=== PATIENT | male | born 1940 | race Caucasian/White ===

== ENCOUNTER 2016-12-28 08:34 | Inpatient (IN) | payer OTHER ==
[2016-12-28 09:07] LABS: BASO% 0.3 % (0.0-0.8); EOS# 0.75 X1000 (0.0-0.7); EOS% 10.3 % (0.0-10.0); HEMATOCRIT 27.1 % (42.0-52.0); HEMOGLOBIN 8.5 g/dL (14.0-18.0); LYMPH# 4.16 X1000 (1.2-3.4); LYMPH% 57.1 % (20.5-51.1); MANUAL DIFF NEEDED? YES; MCH 29.7 PG (27-31); MCHC 31.4 g/dL (33-37); MCV 94.8 FL (81-99); MONO# 0.47 X1000 (0.11-0.59); MONO% 6.5 % (1.7-9.3); MPV 10.2 FL (7.4-10.4); NEUT% 25.8 % (42.2-75.2); PLT 114 X1000 (130-400); RBC 2.86 XMIL (4.7-6.1)
[2016-12-28 09:23] LABS: ALBUMIN 4.1 g/dL (3.5-5.0); TOTAL BILIRUBIN 0.15 mg/dL (0.20-1.00); TOTAL PROTEIN 6.7 g/dL (6.3-8.3)
[2016-12-28 09:32] LABS: INR 0.98; PROTIME 10.4 Seconds (9.2-11.7)
--- NOTE | 2016-12-28 09:48 | PROVIDER DOCUMENTATION ---
HPI-Abdominal Pain/GI Problem - General Source: patient - History of Present Illness-ABD Nature of Presenting Problems: Pt is 76 y/o M presents to the ED with abdominal pain. Pt states the pain started 5 days ago. Pt states 4 days ago going to the bathroom to have a BM and when he wiped he had blood and blood in the toilet. Pt states the bleeding stayed present with BM for 3 days. Pt states no BM since yesterday. Pt denies N/ V/D. Pt states dizziness and denies syncopal episodes recently. Abdominal Pain Onset Location: reports: periumbilical Pain Radiation: reports: no radiation Quality of Pain: reports: aching Severity in ED: reports: mild Onset/Duration: reports: 3 days ago (rectal bleeding with BM), 5 days ago ( abdominal pain) Timing: reports: still present, intermittent Activities at Onset: reports: light activity Exposure to sick contacts?: No Modifying Factors: improves with: nothing Associated Symptoms: reports: dizziness, other (rectal bleeding with BM). denies: anxiety, arm pain, back/neck pain, chest pain, constipation, cough, diaphoresis, diarrhea, EENT symptoms, fatigue, fever/chills, genitourinary problems, headaches, heartburn, joint pain, loss of appetite, malaise, muscle aches, sinus congestion/drainage, nausea, rash, seizure, shortness of breath, sensory/motor loss, pain with inspiration, swelling/mass in abdomen, syncope, vomiting, weakness, trouble walking Last BM: 24 hours ago Dark Stools Present?: reports: none noticed Rectal Bleeding: reports: blood streaks on stool, other (blood on paper) Rectal Pain: reports: none Emesis Description: reports: none Bruising or Bleeding Gums?: No Similar Symptoms Previously?: Yes Recently seen or treated by another doctor?: No - General Chief Complaint: GI Bleed Stated Complaint: RECTAL BLEEDING,SOB Time Seen by Provider: 12/28/16 08:59 Allergies/Adverse Reactions: Patient Allergies Allergy/AdvReac Type Severity Reaction Status Date / Time No Known Allergies Allergy Verified 08/03/15 09:58 Home Medications: Home Medication List Medication Instructions Recorded Confirmed Last Taken Type Trazodone [Desyrel] 50 mg PO QHS 08/21/14 12/28/16 12/13/15 21:00 History Buspirone [Buspar] 15 mg PO BID #1 02/03/15 12/28/16 12/13/15 21:00 Rx Duloxetine [Cymbalta] 60 mg PO DAILY #1 02/03/15 12/28/16 12/13/15 07:00 Rx Levothyroxine [Synthroid] 50 microgm PO DAILY #1 02/03/15 12/28/16 12/13/15 07: 00 Rx Mirtazapine [Remeron] 15 mg PO QHS #1 02/03/15 12/28/16 12/13/15 21:00 Rx Ropinirole [Requip] 1 mg PO QHS #1 02/03/15 12/28/16 12/13/15 21:00 Rx Simvastatin [Zocor] 40 mg PO DAILY 12/14/15 12/28/16 12/13/15 07:00 History Tamsulosin [Flomax] 0.4 mg PO DAILY #0 capsule 12/19/15 12/28/16 Unknown Rx Gemfibrozil [Lopid] 600 mg PO BID 12/28/16 12/28/16 Unknown History Lisinopril/Hydrochlorothiazide 0.5 each PO DAILY 12/28/16 12/28/16 Unknown History [Lisinopril-Hctz 10-12.5 mg Tab] Review of Systems - Adult - REVIEW OF SYSTEMS - ADULT Constitutional: denies: chills, fever Eyes: denies: blurred vision, double vision Ears, Nose, Mouth & Throat: denies: ear pain, nose pain, throat pain Cardiovascular: denies: chest pain, heart murmur, irregular heart rate Respiratory: denies: cough, shortness of breath, wheezing Gastrointestinal: reports: abdominal pain (periumbilical), rectal bleeding. denies: diarrhea, nausea, vomiting Genitourinary: denies: dysuria, hematuria Musculoskeletal: denies: bone pain, joint pain, neck pain Integumentary: denies: hives, itching Neurological: denies: dizziness/vertigo, headache/migraines Psychiatric: reports: no symptoms reported Endocrine: reports: no symptoms reported Hematologic/Lymphatic: reports: no symptoms reported Allergic/Immunologic: reports: no symptoms reported All Other Systems: Reviewed and Negative Past History - Adult - PAST MEDICAL HISTORY-ADULT Review of Records: reports: Nursing Assessment Review, Medications Reviewed, Social history reviewed & non-contributory. Major Childhood Illnesses: reports: denies history Cardiovascular: reports: CAD, HTN, [place] Respiratory: reports: asthma, COPD, sleep apnea Gastrointestinal: reports: denies history Obstetrical/Gynecological: reports: denies history Genitourinary: reports: denies history Musculoskeletal: reports: denies history Neurological: reports: denies history Endocrine/Immune: reports: thyroid disorder Other Conditions: reports: denies history - PRIOR SURGERIES/PROCEDURES Surgical/Procedure History: reports: CABG, other (colon surgery ) - PRIOR HOSPITALIZATIONS Prior Hospitalizations: reports: for similar symptoms - IMMUNIZATION STATUS Childhood Immunizations: See Nurse Assessment Flu Vaccine: See Nurse Assessment - FAMILY HISTORY Family History: reviewed, not pertinent - SOCIAL HISTORY Smoking: cigarettes, less than 1 pack/day Provider spent 3-5 mins advising pt. on dangers of tobacco.: Discussed manners to quit use, and f/u contacts for add'l counseling. Substance Use: denies Living Situation: family Physical Exam-General - PHYSICAL EXAM-ADULT Initial Vital Signs Reviewed: Yes - CONSTITUTIONAL General Appearance: appears well, alert, no apparent distress - EYES Eyes: PERRL/EOMI, pink conjunctivae, fundi clear, no AV nicking - HEAD, EARS, NOSE, MOUTH & THROAT HENMT: normocephalic/atraumatic, moist mucous membranes, normal ENT inspection, TMs normal, pharynx normal - NECK Neck: non-tender, full range of motion, supple, normal inspection - RESPIRATORY Respiratory: chest non-tender, lungs clear, no pleuratic chest pain, no respiratory distress, no accessory muscle use, wheezing (expiratory) - CARDIOVASCULAR Cardiovascular: normal peripheral pulses, regular rate, rhythm, no edema, no gallop, no JVD, no murmur, other (mid sternal healed scar) - GASTROINTESTINAL (ABDOMEN) Abdominal Exam: normal bowel sounds, non tender, soft, no organomegaly, no pulsatile mass, other (well healed abdominal scar) - GENITOURINARY Rectal Exam: normal exam, normal rectal tone, other (no blood in under garments ; no blood present on anus; rectal vault empty) - LYMPHATIC Lymphatic: no adenopathy - MUSCULOSKELETAL Back Exam: normal inspection, no CVA tenderness, no vertebral tenderness Extremity: normal range of motion, non-tender, normal inspection, no pedal edema , no calf tenderness Peripheral Pulses: dorsalis-pedis (R): 2+, dorsalis-pedis (L): 2+ - SKIN Integumentary: normal color, normal turgor, warm/dry - NEUROLOGIC Neurologic: insurance investigator II-XII nml as tested, grossly normal, no motor/sensory deficits - PSYCHIATRIC Psych/Mental Status: normal mood/affect, normal thought content, normal thought process, oriented x 3 Progress - PLAN OF CARE/RESULTS Progress/Plan/Lab Results: Laboratory Tests 12/28/16 12/28/16 12/28/16 08:55 08:55 08:55 WBC 7.28 RBC 2.86 L Hgb 8.5 L Hct 27.1 L MCV 94.8 MCH 29.7 MCHC 31.4 L RDW Std Deviation 12.2 Plt Count 114 L MPV 10.2 Immature Gran % (Auto) 0.0 Neut % (Auto) 25.8 L Lymph % (Auto) 57.1 H Morrison % (Auto) 6.5 Eos % (Auto) 10.3 H Baso % (Auto) 0.3 Immature Gran # (Auto) 0.00 Neut # (Auto) 1.88 Lymph # (Auto) 4.16 H Morrison # (Auto) 0.47 Eos # (Auto) 0.75 H Baso # (Auto) 0.02 PT 10.4 INR 0.98 Sodium 139 Potassium 5.0 Chloride 95 L Carbon Dioxide 33 Anion Gap 11 BUN 45 H Creatinine 2.1 H Estimated GFR/1.73 m2 31 BUN/Creatinine Ratio 21 Glucose 83 Calculated Osmolality 288 Calcium 9.0 Total Bilirubin 0.15 L AST 13 ALT 6 L Alkaline Phosphatase 67 Total Protein 6.7 Albumin 4.1 Globulin 2.6 Albumin/Globulin Ratio 1.6 Orders Category Date Time Status CBC WITH DIFF [HEME] Stat Lab 12/28/16 08:55 Results CMP [COMPREHENSIVE METABOLIC PANEL] [CHEM] Stat Lab 12/28/16 08:55 Completed PROTIME WITH INR [COAG] Stat Lab 12/28/16 08:55 Completed Vital Signs - 24 hr 12/28/16 12/28/16 08:42 09:14 Temperature 98.2 F Pulse Rate 63 71 Respiratory 20 20 Rate Blood Pressure 91/72 82/51 O2 Sat by Pulse 100 92 L Oximetry - EKG 1 Time of EKG reading by physician:: 10:10 EKG Read and Signed by:: Gabriel Flor Jr EKG Interpretation (*Must complete 3 of following elements*): Abnormal Rate: 74 Rhythm: sinus rhythm with premature atrial complexes with aberrant conduction Comments: T wave abnormality, consider lateral ischemia - CONSULTS/PCP/HOSPITALIST Notification #1 *Consult/PCP/Hospitalist*: Dr. Domínguez Time Discussed: 11:50 (Dr. Domínguez accepted admit and states give protonix bolus in ED ) Reason/Comments: Dr. Flor consults with Dr. Domínguez about admit of Pt Consult Disposition: Admit #2 Consult: Dr. Jameson Time Discussed: 12:06 (Dr. Jameson states will see Pt upstairs ) Reason/Comments: Dr. Flor consults with Dr. Jameson about Pt. Departure - Departure Time of Disposition Order: 11:51 Certified Medical Emergency: Emergent - Departure DIAGNOSIS: Lower GI bleed, Anemia due to blood loss, COPD exacerbation, Tobacco abuse Disposition: ADMITTED INPATIENT 09 Condition: Stable Additional Instructions: ED Follow Up Instructions: You have been treated by a care provider in the Emergency Department. These instructions are being provided to you so you can have an understanding of how to care for yourself upon discharge. Upon discharge from the Emergency Department, you are responsible for making arrangements for follow-up care by a physician of your choice. Take all prescribed medications as directed. Return to the Emergency Department immediately for any new or worsening symptoms. You may call the Physician Referral phone number at [phone] to obtain a list of Physicians who are taking new patients. Referrals: Michael Camacho MD [Primary Care Provider] - Attestation - Scribe Verification/Attestation Scribe:: Adri Villanueva Acting as Scribe for:: Gabriel Flor Jr Scribe documention review:: This chart was documented by a scribe and accurately reflects the service the provider performed and the decisions made by the provider. Physician Attestation
[2016-12-28] MEDS ORDERED: NS 1,000 ML IV ONE (10:00)
[2016-12-28] MEDS ORDERED: NS 1,000 ML ONE (10:01)
[2016-12-28 10:16] LABS: BANDS 2 % (0-1); EOS 12 % (1-10); LYMPHS 52 % (21-51); MONO 11 % (1-9)
[2016-12-28 10:17] LABS: HYPOCHROM 1+
[2016-12-28] MEDS ORDERED: DUONEB (A & A) INH ONE (10:27)
[2016-12-28] MEDS ORDERED: PROTONIX 80 MG in NS 80 ML IV ONE (11:50)
[2016-12-28] MEDS ORDERED: NS 1,000 ML IV SCH (12:00)
[2016-12-28 17:17] LABS: MAGNESIUM 2.2 mg/dL (1.5-2.7)
[2016-12-28] MEDS ORDERED: PROTONIX IV SCH (19:00)
[2016-12-28] MEDS ORDERED: FLUZONE QUAD 2016-2017 SYRINGE IM ONE (19:00)
[2016-12-28] MEDS ORDERED: PNEUMOVAX 23 IM ONE (19:04)
[2016-12-28] MEDS ORDERED: NS 500 ML IV ONE (19:09)
[2016-12-28 19:59] LABS: HEMATOCRIT 26.9 % (42.0-52.0); HEMOGLOBIN 8.5 g/dL (14.0-18.0)
--- NOTE | 2016-12-28 20:03 | HISTORY AND PHYSICAL ---
HISTORY OF PRESENT ILLNESS: Mr. Phillips who is a 76-year-old white gentleman came to the emergency room because of rectal bleeding for the last 2 days. He passed black stool as well as bright red blood through the rectum. Mr. Phillips has a history of ischemic bowel in the past and had a subtotal colectomy done. He also had coronary artery bypass surgery performed about 16 years ago and had 1 back surgery performed. He had left carotid endarterectomy. He has a known case of COPD, hypothyroidism, BPH, mild hypertension diabetes 7. MEDICATIONS: Levothyroxine 50 mcg, ropinirole 1 mg at bedtime, Remeron 15 mg at bedtime, lisinopril/HCT daily, gemfibrozil 600 mg b.i.d., Flomax 0.4 mg daily, trazodone 50 mg at bedtime, Cymbalta 60 mg daily, risperidone 15 mg twice a day. SOCIAL HISTORY: He is a smoker. He does not drink. He is a patient of Dr. Camacho. ALLERGIES: He is not allergic to any medication. REVIEW OF SYSTEMS: Other than rectal bleeding and mild intermittent abdominal pain, is noncontributory. PHYSICAL EXAMINATION: GENERAL: Patient is alert. VITAL SIGNS: Temperature 99.1 degrees Fahrenheit, pulse 68 per minute, respiratory rate 18 per minute, blood pressure 162/64. HEENT: Head normocephalic. PERRLA. Fundus examination not done. ENT examination unremarkable. NECK: Supple. JVP normal. There is no evidence of lymphadenopathy, thyroid enlargement. EXTREMITIES: No pedal edema, calf tenderness, edema, cyanosis or clubbing. Pedal pulses well felt. BREAST EXAMINATION: Normal. CHEST: Reveals a midline scar from bypass surgery. LUNGS: Clear on auscultation. PMI in the normal position. HEART: Sounds normal. No murmur, gallop or rub noted. ABDOMEN: Nondistended. Revealed a midline scar from colon surgery. No guarding, rigidity or free fluid masses. There was some tenderness in the left lower quadrant. RECTAL EXAMINATION: Deferred initially. It was done and there was no blood in the rectal vault at that time, however, the stool was positive for occult blood. CENTRAL NERVOUS SYSTEM: Cranial nerves normal. Motor and sensory system examination unremarkable. Deep tendon reflexes normal. Plantars downgoing. Skull and spine examination normal for age. No cerebellar signs or signs of meningeal irritation. LOCOMOTOR EXAMINATION: Unremarkable. SKIN EXAMINATION: Unremarkable. CLINICAL IMPRESSION: Abdominal pain, rectal bleeding, history of ischemic bowel and partial colectomy performed by Dr. Summers in the past. PLAN: Get EGD and colonoscopy done by Dr. Jameson tomorrow. In the meantime watch his hematocrit and hemoglobin. We will try to transfuse if hemoglobin and hematocrit is significantly low.
[2016-12-28] MEDS: DESYREL PO SCH (21:47)
[2016-12-28] MEDS: REQUIP PO SCH (21:47)
[2016-12-28] MEDS: REMERON PO SCH (21:48)
[2016-12-28] MEDS: ZOCOR PO SCH (21:48)
[2016-12-28] MEDS: LOPID PO SCH (21:48)
[2016-12-28] MEDS: BUSPAR PO SCH (21:48)
[2016-12-28] MEDS: SODIUM CHLORIDE 0.9% INJ SCH (21:49)
[2016-12-29 03:04] LABS: HEMATOCRIT 25.7 % (42.0-52.0); HEMOGLOBIN 8.1 g/dL (14.0-18.0)
--- NOTE | 2016-12-29 05:45 | EKG Report ---
Test Performed on : 12/28/2016 4:40:45 PM Test Reason : repeat Blood Pressure : / mmHG Vent. Rate : 070 BPM Atrial Rate : 070 BPM P-R Int : 152 ms QRS Dur : 086 ms QT Int : 376 ms P-R-T Axes : 079 041 099 degrees QTc Int : 406 ms Sinus rhythm. with premature atrial complexes. with aberrant conduction. T wave abnormality, consider lateral ischemia Abnormal ECG When compared with ECG of 28-DEC-2016 16:40, (Unconfirmed) aberrant conduction. is now present Confirmed by Anshu Gusman MD ([id number]) on 12/30/2016 8:46:40 PM
--- NOTE | 2016-12-29 06:12 | EKG Report ---
Test Performed on : 12/28/2016 10:10:37 AM Test Reason : No order in [facility] Blood Pressure : / mmHG Vent. Rate : 074 BPM Atrial Rate : 074 BPM P-R Int : 156 ms QRS Dur : 084 ms QT Int : 368 ms P-R-T Axes : 073 055 088 degrees QTc Int : 408 ms Sinus rhythm. with premature atrial complexes. with aberrant conduction. T wave abnormality, consider lateral ischemia Abnormal ECG When compared with ECG of 14-DEC-2015 14:10, aberrant conduction. is now present T wave inversion now evident in Lateral leads Unconfirmed Result
[2016-12-29] MEDS: DUONEB (A & A) INH SCH ×3 (08:34→21:25)
[2016-12-29 08:53] LABS: HEMATOCRIT 26.1 % (42.0-52.0); HEMOGLOBIN 8.3 g/dL (14.0-18.0)
--- NOTE | 2016-12-29 09:56 | PROGRESS NOTE ---
DATE: 12/29/2016 SUBJECTIVE: Mr. Phillips is doing some better this morning; however, he still has wheezing. He had a lot of bleeding last night and he was transfused 1 unit. His hemoglobin is down to 8.1. He is going to have the colonoscopy this morning. -2
[2016-12-29] MEDS: ROCEPHIN 1 GM/NS 50 ML IV SCH (11:34)
[2016-12-29] MEDS: BUSPAR PO SCH ×2 (11:34→21:00)
[2016-12-29] MEDS: PRINZIDE 10/12.5MG PO SCH (11:35)
[2016-12-29] MEDS: FLOMAX PO SCH (11:35)
[2016-12-29] MEDS: CYMBALTA PO SCH (11:35)
[2016-12-29] MEDS: SYNTHROID PO SCH (11:36)
[2016-12-29] MEDS: LOPID PO SCH ×2 (11:36→21:00)
[2016-12-29] MEDS: PROTONIX IV SCH ×2 (11:37→23:06)
[2016-12-29] MEDS: SODIUM CHLORIDE 0.9% INJ SCH ×2 (11:37→23:06)
[2016-12-29] MEDS ORDERED: GOLYTELY PO ONE (14:00)
[2016-12-29 15:03] LABS: HEMATOCRIT 26.9 % (42.0-52.0); HEMOGLOBIN 8.4 g/dL (14.0-18.0)
--- NOTE | 2016-12-29 15:46 | CONSULTATION ---
DATE OF CONSULTATION: 12/29/2016 REQUESTING PHYSICIAN: Dr. Camacho. REASON FOR CONSULTATION: Rectal bleeding. HISTORY OF PRESENT ILLNESS: Mr. Phillips is a 76-year-old male who was admitted on 12/26/2016 for acute onset of rectal bleeding since last Monday. Currently the patient is passing bright red blood per the rectum. In the past he had a history of ischemic bowel and had a subtotal colectomy done. He has a history of coronary bypass surgery 16 years ago. He denies any vomiting blood or coffee-ground emesis. He does have a history of chronic acid reflux. His last colonoscopy had poor prep. During this admission the patient was noted to be anemic with a hemoglobin and hematocrit of 8.3 and 26.1. He has gotten 1 unit of blood last night. PAST MEDICAL HISTORY: COPD, hypothyroidism, BPH, hypertension, diabetes, aortic stenosis, coronary disease, ischemic bowel, gastroesophageal reflux disease, constipation. PAST SURGICAL HISTORY: Carotid endarterectomy, CABG, EGD, and colonoscopy. MEDICATIONS: At home include levothyroxine, ropinirole, Remeron, lisinopril/ hydrochlorothiazide, gemfibrozil, Flomax, trazodone, Cymbalta, risperidone. Patient denies any history of use of NSAIDs. SOCIAL HISTORY: He is a smoker. He denies any history of drinking. He denies use of illicit drugs. He has a very supportive family at bedside. ALLERGIES: No known drug allergies. REVIEW OF SYSTEMS: Denies any fevers, rigors, or chills, chest pain, shortness of breath at rest. Does have history of exertional shortness of breath attributed to COPD. Denies any vomiting blood or coffee emesis. He has had rectal bleeding going on for the last 7 days and causing anemia requiring blood transfusion. Denies any neurologic complaints. MEDICATIONS IN THE HOSPITAL: Protonix IV once daily, BuSpar, Cymbalta, trazodone, Flomax, gemfibrozil, lisinopril/hydrochlorothiazide, Remeron, ropinirole, levothyroxine , simvastatin, ceftriaxone, albuterol/ipratropium. He is currently NPO. PHYSICAL EXAMINATION: Vital SIGNS: Temperature 97.9, pulse rate of 80, respiratory rate 18, blood pressure 143/53, saturating 90% on nasal cannula. General Appearance: Moderately built, moderately nourished, lying in bed, in no acute distress. HEENT: Pale conjunctivae. No icterus. Pupils equal, react to light. Neck: Supple. Chest: Decreased. Cardiac: Regular rhythm. No murmur. Abdomen: Soft. Mild discomfort noted. No rebound. No guarding. Bowel sounds noted. Extremities: No cyanosis, clubbing. Neurologic: Alert, awake, oriented. LABS: Hemoglobin and hematocrit are 8.3 and 26.1, white count 7.2, platelet count of 114,000. Sodium 139, potassium 5, chloride 95, bicarb of 33, anion gap of 11, BUN of 45, creatinine of 2.1, glucose of 80, HB A1c 5.9, calcium is 9, phosphorus 3.1. Iron level of 73, magnesium 2.2, ferritin 224. Total bilirubin is 0.15, AST 13, ALT 6, alkaline phosphatase 67, total protein. 6.7, albumin of 4.1, amylase of 40, lipase of 29. 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 Last EGD and colonoscopy. Last EGD was done 12/17/2015 which showed esophageal ring in distal esophagus status post dilation, sliding hiatal hernia, and gastritis. The stool throughout the colon, most in the descending colon and sigmoid colon. Small polyps left colon. Internal hemorrhoids. Status post left hemicolectomy by Dr. Summers on 10/27/2014. He had left carotid endarterectomy by Dr. Wallace in 2014. IMPRESSIONS: 1. Rectal bleeding. 2. Atypical abdominal pain. 3. Anemia requiring blood transfusion. 4. History of chronic smoking. 5. Chronic obstructive pulmonary disease. 6. Peripheral arterial disease history. 7. History of ischemic colitis, required resection in 2013. 8. Constipation. 9. Reflux disease. RECOMMENDATIONS: 1. Will schedule the patient for EGD and colonoscopy tomorrow Dr. Jameson. We will start him on Protonix and increase it to twice daily. We will start him on a clear liquid diet today. We will type and cross, transfuse to keep hematocrit more than 25%. We will avoid any NSAIDs. The patient was instructed to quit smoking completely. 2. The patient has positive QuantiFERON test from before, 2014. In that regard , patient may benefit from investigation by infectious disease team. We will leave it to the discretion of the primary care team in that regard. 3. Further recommendations are pending hospital course. MTDKristopher
[2016-12-29] MEDS: ZOCOR PO SCH (21:00)
[2016-12-29] MEDS: REMERON PO SCH (21:00)
[2016-12-29] MEDS: REQUIP PO SCH (21:00)
[2016-12-29] MEDS: DESYREL PO SCH (21:00)
[2016-12-30] MEDS: DUONEB (A & A) INH SCH ×3 (08:29→19:37)
[2016-12-30] MEDS: ROCEPHIN 1 GM/NS 50 ML IV SCH (09:27)
[2016-12-30] MEDS ORDERED: NS 500 ML IV ONE (10:42)
--- NOTE | 2016-12-30 11:16 | PROGRESS NOTE ---
DATE: 12/30/2016 SUBJECTIVE: Mr. Phillips also had some bleeding. His hemoglobin and hematocrit is stable, however according to a family member he had large bleed. He is somewhat drowsy. He is getting the colonoscopy today. I am going to transfuse him 2 more units of packed RBCs. -7
[2016-12-30] MEDS ORDERED: DUONEB (A & A) INH ONE (11:31)
[2016-12-30] MEDS ORDERED: MYLICON DROPS (DOSE) MISC ONE (12:04)
[2016-12-30] MEDS ORDERED: DIPRIVAN 1% ONE (12:38)
--- NOTE | 2016-12-30 13:01 | OPERATIVE NOTE ---
PROCEDURE DATE: 12/30/2016 PROCEDURE: 1. Colonoscopy. 2. Esophagogastroduodenoscopy. PREOPERATIVE DIAGNOSES: 1. Gastrointestinal bleed. 2. Anemia. POSTOPERATIVE DIAGNOSES: 1. Normal upper gastrointestinal tract. 2. Diverticulosis. 3. Old blood in the colon, no active bleeding. DESCRIPTION OF PROCEDURE: After informed consent and adequate intravenous sedation by Anesthesia, the scope was introduced to the esophagus. No varices. Cardia, fundus, body, antrum, pylorus, duodenal bulb and second portion normal. No fresh or old blood seen. The scope was withdrawn. At this point, digital rectal exam was performed. Scope advanced all the way into the cecum. The right colon is clear. There were scattered diverticulosis throughout the colon. In the left colon, there was old blood, however, this was lavaged. Patient has no bleeding site identified and no active bleeding seen. The scope was withdrawn. Therefore, I think patient had a diverticular bleed. We will watch him and keep the hematocrit about 28.
[2016-12-30] MEDS ORDERED: LR 1,000 ML ONE (13:09)
[2016-12-30] MEDS ORDERED: XYLOCAINE-MPF 2% ONE (13:09)
[2016-12-30] MEDS ORDERED: ANESTHESIA PB SET 88 IN 5742 ONE (13:09)
[2016-12-30] MEDS ORDERED: EXTENSION SET 32 IN 4522 ONE (13:09)
[2016-12-30] MEDS: PROTONIX IV SCH ×2 (14:52→20:16)
[2016-12-30] MEDS: BUSPAR PO SCH ×2 (14:52→20:15)
[2016-12-30] MEDS: SYNTHROID PO SCH (14:56)
[2016-12-30] MEDS: PRINZIDE 10/12.5MG PO SCH (14:56)
[2016-12-30] MEDS: LOPID PO SCH ×2 (14:57→20:15)
[2016-12-30] MEDS: CYMBALTA PO SCH (14:57)
[2016-12-30] MEDS: FLOMAX PO SCH (14:57)
[2016-12-30] MEDS ORDERED: LASIX IV ONE (18:15)
[2016-12-30] MEDS ORDERED: LASIX ONE (18:17)
[2016-12-30] MEDS: ZOCOR PO SCH (20:14)
[2016-12-30] MEDS: REQUIP PO SCH (20:14)
[2016-12-30] MEDS: REMERON PO SCH (20:14)
[2016-12-30] MEDS: DESYREL PO SCH (20:15)
[2016-12-30] MEDS: SODIUM CHLORIDE 0.9% INJ SCH (20:15)
[2016-12-31] MEDS: PROTONIX IV SCH ×2 (09:32→23:21)
[2016-12-31] MEDS: ROCEPHIN 1 GM/NS 50 ML IV SCH (09:32)
[2016-12-31] MEDS: SODIUM CHLORIDE 0.9% INJ SCH ×2 (09:32→23:21)
[2016-12-31] MEDS: PRINZIDE 10/12.5MG PO SCH (09:33)
[2016-12-31] MEDS: SYNTHROID PO SCH (09:33)
[2016-12-31] MEDS: CYMBALTA PO SCH (09:34)
[2016-12-31] MEDS: BUSPAR PO SCH ×2 (09:35→23:21)
[2016-12-31] MEDS: LOPID PO SCH ×2 (09:35→23:21)
[2016-12-31] MEDS: FLOMAX PO SCH (09:35)
[2016-12-31] MEDS: DUONEB (A & A) INH SCH ×3 (09:51→19:44)
--- NOTE | 2016-12-31 13:22 | PROGRESS NOTE ---
DATE: 12/31/2016 SUBJECTIVE: Mr. Phillips is doing better. His hemoglobin is stable. We will do the CBC in the morning and, if it normal, then we will discharge him. He does not want to stay any longer. -2
--- NOTE | 2016-12-31 16:07 | PROGRESS NOTE ---
DATE: 12/31/2016 SUBJECTIVE: Patient is currently resting in bed. He denies any new complaints. Denies any blood in the stools. Vitals: Temperature 98.5 degrees, pulse rate 70, respiratory rate 16, blood pressure 134/43, saturating 98% on 4 L nasal cannula. General Appearance: Moderately well- nourished, in bed, in no acute distress. HEENT: Pale conjunctivae. No icterus. Neck: Supple. Abdomen: Soft, nontender, nondistended. No guarding. No rebound. Extremities: No cyanosis, clubbing, edema. Neurologic: He is alert, awake, oriented. LABS: His hemoglobin and hematocrit is 8.4, 26.9 from 12/29. IMPRESSION AND PLAN: 1. Diverticular bleeding which has resolved now. The patient will avoid corn, nuts, and seeds in diet. We will increase fiber 25-30 g 24 hours. The patient will be on Metamucil once daily. 2. Constipation. The patient need to be on Metamucil once at bedtime and MiraLAX in the morning. 3. Anemia. We will watch for now. We will type and cross, transfuse to keep hematocrit more than 25%. We will start on iron supplementation. 4. Further recommendation pending hospital course.
[2016-12-31] MEDS: ZOCOR PO SCH (23:21)
[2016-12-31] MEDS: DESYREL PO SCH (23:21)
[2016-12-31] MEDS: REQUIP PO SCH (23:21)
[2016-12-31] MEDS: REMERON PO SCH (23:21)
[2016-12-31] MEDS: CENTRUM SILVER PO SCH (23:22)
[2017-01-01 06:59] LABS: MANUAL DIFF NEEDED? NO
[2017-01-01 07:12] LABS: BASO% 0.4 % (0.0-0.8); EOS# 0.63 X1000 (0.0-0.7); EOS% 11.1 % (0.0-10.0); HEMATOCRIT 28.8 % (42.0-52.0); HEMOGLOBIN 9.1 g/dL (14.0-18.0); LYMPH% 52.9 % (20.5-51.1); MCH 28.2 PG (27-31); MCHC 31.6 g/dL (33-37); MCV 89.2 FL (81-99); MONO# 0.36 X1000 (0.11-0.59); MONO% 6.3 % (1.7-9.3); MPV 10.5 FL (7.4-10.4); NEUT% 29.3 % (42.2-75.2); PLT 99 X1000 (130-400); RBC 3.23 XMIL (4.7-6.1)
[2017-01-01 07:35] VITALS: BP 142/50
[2017-01-01] MEDS: DUONEB (A & A) INH SCH (08:00)
[2017-01-01] MEDS ORDERED: HEMOCYTE PO SCH (09:00)
[2017-01-01] MEDS: ROCEPHIN 1 GM/NS 50 ML IV SCH (09:35)
[2017-01-01] MEDS: SODIUM CHLORIDE 0.9% INJ SCH (09:36)
[2017-01-01] MEDS: PROTONIX IV SCH (09:36)
[2017-01-01] MEDS: FLOMAX PO SCH (09:36)
[2017-01-01] MEDS: CENTRUM SILVER PO SCH ×2 (09:36→09:40)
[2017-01-01] MEDS: PRINZIDE 10/12.5MG PO SCH (09:36)
[2017-01-01] MEDS: LOPID PO SCH (09:37)
[2017-01-01] MEDS: SYNTHROID PO SCH (09:38)
[2017-01-01] MEDS: BUSPAR PO SCH (09:38)
[2017-01-01] MEDS: CYMBALTA PO SCH (09:38)
--- NOTE | 2017-01-01 12:15 | PROGRESS NOTE ---
DATE: 01/01/2017 Mr. Phillips insists on going home. His CBC is stable. Hemoglobin is above 9 g. His lungs sound clear today. Overall condition is unchanged. He has no active bleeding. We will discharge him today. -4
--- NOTE | 2017-01-02 08:54 | DISCHARGE SUMMARY ---
ADMISSION DATE: 12/28/2016 DISCHARGE DATE: 01/01/2017 HISTORY: The patient who is a 76-year-old white gentleman was admitted with severe GI bleeding point around. Laboratory Data in the hospital, he had an EGD done by Dr. Jameson and colonoscopy done here with a normal gastrointestinal tract, diverticulosis and old blood in the colon. No active bleeding was noted. Laboratory data revealed when he came in it was 8.5, it dropped to 8.1. He continuously was bleeding. Hence, we decided to transfuse him. Final hemoglobin this morning is 9.1, hematocrit 28.8, white count is 5.67. INR was 0.98. Electrolytes were normal. BUN to 245 and creatinine 2.1. Troponin was negative. He was given IV fluids and IV transfusion. Dr. Thompson and Dr. Jameson were consulted. EGD and colonoscopy was unremarkable. The final diagnosis is possible diverticular bleeding. He will be given ferrous sulfate prescription of 324 mg daily. He may take That is all he is going to need and he is going to see Dr. Camacho in about a week. IMPRESSION: 1. COPD. 2. Active GI bleeding possibly from diverticulosis.
== END 2017-01-01 14:16 | disposition home or self-care (01) | DRG 378 ==
LOC: ED 08:34 → EDIPHOLD 12:36 → 3N 16:38
PROVIDERS: ADMIT Internal Medicine; ATTEND Internal Medicine
PROC: 30233N1 Transfusion of Nonautologous Red Blood Cells into Peripheral Vein, Percutaneous Approach (ICD-10-PCS; 2016-12-28)
PROC: 0DJ08ZZ Inspection of Upper Intestinal Tract, Via Natural or Artificial Opening Endoscopic (ICD-10-PCS; principal; 2016-12-30 12:00)
PROC: 0DJD8ZZ Inspection of Lower Intestinal Tract, Via Natural or Artificial Opening Endoscopic (ICD-10-PCS; 2016-12-30 12:00)
DX: K57.31 Diverticulosis of large intestine without perforation or abscess with bleeding (principal); J44.1 Chronic obstructive pulmonary disease with (acute) exacerbation; E11.51 Type 2 diabetes mellitus with diabetic peripheral angiopathy without gangrene; D50.0 Iron deficiency anemia secondary to blood loss (chronic); I10 Essential (primary) hypertension; F17.210 Nicotine dependence, cigarettes, uncomplicated; F32.9 Major depressive disorder, single episode, unspecified; Z90.49 Acquired absence of other specified parts of digestive tract; E03.9 Hypothyroidism, unspecified; I35.0 Nonrheumatic aortic (valve) stenosis; N40.0 Benign prostatic hyperplasia without lower urinary tract symptoms; I25.10 Atherosclerotic heart disease of native coronary artery without angina pectoris; J45.909 Unspecified asthma, uncomplicated; K21.9 Gastro-esophageal reflux disease without esophagitis; Z95.1 Presence of aortocoronary bypass graft; K59.00 Constipation, unspecified; M19.90 Unspecified osteoarthritis, unspecified site; G25.81 Restless legs syndrome; Z79.899 Other long term (current) drug therapy; I25.2 Old myocardial infarction
CPT/HCPCS: 36415; 80053; 82270; 82550; 83735; 84484; 85014; 85018; 85025; 85610; 86850; 86900; 86901; 86920; 93005; 94640; 94761; 96361; 96365; C9113; J0696; J1940; J7030; J7040; J7120; P9016; S0164

== ENCOUNTER 2019-01-08 11:25 | Inpatient (IN) ==
--- NOTE | 2019-01-08 13:21 | Diag Imaging Result Doc PS360 ---
CHEST-1 VIEW - 01/08/2019 INDICATION: cough COMPARISON: 10/18/2018 FINDINGS: Stable sternotomy changes. Heart size is top normal. No infiltrates or edema. There is some stable linear scarring in the lateral left midlung. IMPRESSION: No significant change from prior. No acute process. Electronically signed by Chano Chance 01/08/2019 1:19 PM
[2019-01-08 13:39] LABS: BASO# 0.02 X1000 (0.0-0.2); BASO% 0.2 % (0.0-0.8); EOS# 0.46 X1000 (0.0-0.7); EOS% 4.8 % (0.0-10.0); HEMOGLOBIN 7.3 g/dL (14.0-18.0); MCH 32.7 PG (27-31); MCHC 31.7 g/dL (33-37); MCV 103.1 FL (81-99); MPV 10.5 FL (7.4-10.4); PLT 110 X1000 (130-400); RBC 2.23 XMIL (4.7-6.1); RDW 15.7 % (11.5-14.5); WBC 9.54 X1000 (4.8-10.8)
[2019-01-08 13:49] LABS: ALB/GLOB RATIO 2.4; ALBUMIN 4.1 g/dL (3.5-5.0); CALCIUM 8.5 mg/dL (8.8-10.2); CREATININE 1.5 mg/dL (0.7-1.2); POTASSIUM 4.3 mmol/L (3.5-5.1); TOTAL BILIRUBIN 0.17 mg/dL (0.20-1.00); TOTAL PROTEIN 5.8 g/dL (6.3-8.3)
--- NOTE | 2019-01-08 18:20 | PROVIDER DOCUMENTATION ---
This chart was entered by Tosha Summers Scribe, acting as scribe for Cecil Flanagan MD. HPI-General Adult - General Chief Complaint: Near Syncope Stated Complaint: LOW BLOOD,LIGHHEADED,COPD Time Seen by Provider: 01/08/19 12:49 Source: patient Allergies/Adverse Reactions: Patient Allergies Allergy/AdvReac Type Severity Reaction Status Date / Time No Known Allergies Allergy Verified 08/04/18 10:02 Home Medications: Home Medication List Medication Instructions Recorded Confirmed Last Taken Type Trazodone [Desyrel] 50 mg PO QHS 08/21/14 08/04/18 07/16/17 20:00 History 50 MG Buspirone [Buspar] 15 mg PO BID #1 02/03/15 08/04/18 07/16/17 07:00 Rx 15 MG Duloxetine [Cymbalta] 60 mg PO DAILY #1 02/03/15 08/04/18 07/16/17 07:00 Rx 60 MG Levothyroxine [Synthroid] 50 microgm PO DAILY #1 02/03/15 08/04/18 07/16/17 07: 00 Rx 50 MICROGM Mirtazapine [Remeron] 15 mg PO QHS #1 02/03/15 08/04/18 07/16/17 20:00 Rx 15 MG Simvastatin [Zocor] 20 mg PO DAILY 12/14/15 08/04/18 07/16/17 07:00 History 40 MG Gemfibrozil [Lopid] 600 mg PO BID 12/28/16 08/04/18 07/16/17 07:00 History 600 MG Furosemide [Lasix] 40 mg PO DIRECTED 01/25/18 08/04/18 01/21/18 08:00 History 40 mg Potassium Chloride E.r. [Klor-Con] 20 meq PO DIRECTED 01/25/18 08/04/1801/21 09:00 History 20 meq Albuterol 2.5MG/Ipratrop 0.5MG 3 ml INH Q6H 08/04/18 08/04/18 Unknown History [Duoneb (A & A)] Ferrous Sulfate 1 tab PO DAILY 08/04/18 08/04/18 Unknown History Ropinirole [Requip] 0.5 mg PO QHS 08/04/18 08/04/18 Unknown History Albuterol 2.5MG/Ipratrop 0.5MG 3 ml INH RTQ6H neb 08/09/18 Unknown Rx [Duoneb (A & A)] Folic Acid 1 mg PO DAILY #30 tablet 08/09/18 Unknown Rx Levofloxacin [Levaquin] 500 mg PO DAILY #4 tablet 08/09/18 Unknown Rx Polyethylene Glycol 3350 [Miralax] 17 gm PO BID #60 powd.pack 08/09/18 Unknown Rx Prednisone 15 mg PO DAILY tablet 08/09/18 Unknown Rx - History of Present Illness -Gen Adult Nature of Presenting Problems: 78 yom presents to the ed with c/o 3 days of weakness and cough. pt sts has no energy since onset. pt has hx of anemia Location of Pain/Injury: reports: generalized Quality of Pain: reports: other (weakness but denies pain) Severity: reports: moderate Onset/Duration: reports: 3 days ago Timing: reports: still present Context/Activities at Onset: reports: light activity Modifying Factors: improves with: nothing Associated Symptoms: reports: cough, weakness. denies: back/neck pain, chest pain, diaphoresis, diarrhea, dizziness, fever/chills, headaches, nausea, shortness of breath, vomiting Similar Symptoms Previously?: Yes (anemia) Recently seen or treated by another doctor?: No Review of Systems - Adult - REVIEW OF SYSTEMS - ADULT Constitutional: reports: see HPI, fatique Eyes: denies: blurred vision, double vision Ears, Nose, Mouth & Throat: reports: no symptoms reported Cardiovascular: denies: chest pain, palpitations Respiratory: reports: see HPI, cough. denies: shortness of breath, wheezing Gastrointestinal: denies: abdominal pain, diarrhea, nausea, vomiting Genitourinary: reports: no symptoms reported Musculoskeletal: reports: see HPI, muscle weakness. denies: back pain, neck pain Integumentary: reports: no symptoms reported Neurological: reports: no symptoms reported Psychiatric: reports: no symptoms reported Endocrine: reports: no symptoms reported Hematologic/Lymphatic: reports: no symptoms reported Allergic/Immunologic: reports: no symptoms reported All Other Systems: Reviewed and Negative Past History - Adult - PAST MEDICAL HISTORY-ADULT Review of Records: reports: Old Records Reviewed, Nursing Assessment Review, Medications Reviewed, Social history reviewed & non-contributory. Major Childhood Illnesses: reports: denies history Cardiovascular: reports: CAD, HTN, hyperlipidemia, MS Respiratory: reports: asthma, COPD, sleep apnea Gastrointestinal: reports: diverticulosis, GI bleed, other (ischemic bowel with colon resection) Obstetrical/Gynecological: reports: denies history Genitourinary: reports: denies history Musculoskeletal: reports: denies history Hand Dominance: Right Handed Neurological: reports: denies history Endocrine/Immune: reports: thyroid disorder Other Conditions: reports: denies history - PRIOR SURGERIES/PROCEDURES Surgical/Procedure History: reports: CABG, back/neck (back), other (colon surgery ) - PRIOR HOSPITALIZATIONS Prior Hospitalizations: reports: for similar symptoms - IMMUNIZATION STATUS Childhood Immunizations: See Nurse Assessment Flu Vaccine: See Nurse Assessment - FAMILY HISTORY Family History: reviewed, not pertinent - SOCIAL HISTORY Smoking: cigarettes, less than 1 pack/day Provider spent 3-5 mins advising pt. on dangers of tobacco.: Discussed manners to quit use, and f/u contacts for add'l counseling. Substance Use: denies Alcohol Use Frequency: never Living Situation: family Physical Exam-General - PHYSICAL EXAM-ADULT Initial Vital Signs Reviewed: Yes - CONSTITUTIONAL General Appearance: appears well, alert, no apparent distress, obese - EYES Eyes: PERRL/EOMI, pink conjunctivae - HEAD, EARS, NOSE, MOUTH & THROAT HENMT: moist mucous membranes, normal ENT inspection - NECK Neck: non-tender, full range of motion, supple, normal inspection - RESPIRATORY Respiratory: chest non-tender, lungs clear, normal breath sounds - CARDIOVASCULAR Cardiovascular: normal peripheral pulses, regular rate, rhythm - GASTROINTESTINAL (ABDOMEN) Abdominal Exam: normal bowel sounds, non tender, soft - LYMPHATIC Lymphatic: no adenopathy - MUSCULOSKELETAL Back Exam: normal inspection, no CVA tenderness, no vertebral tenderness Extremity: normal range of motion, non-tender, normal gait, normal inspection - SKIN Integumentary: normal color, normal turgor, warm/dry - NEUROLOGIC Neurologic: grossly normal, no motor/sensory deficits - PSYCHIATRIC Psych/Mental Status: normal mood/affect, normal thought content, normal thought process, oriented x 3 Progress - PLAN OF CARE/RESULTS Progress/Plan/Lab Results: Vital Signs - 8 hr 01/08/19 11:36 01/08/19 12:38 01/08/19 12:40 Temperature 98.3 F Pulse Rate 93 H Respiratory Rate 18 Blood Pressure 108/59 152/46 O2 Sat by Pulse Oximetry 94 L 95 94 L Laboratory Results - last 24 hr 01/08/19 11:44 POC Glucose 161 H D Orders Category Date Time Status cxr [CHEST-1 VIEW] [RAD] Stat Exams 01/08/19 12:59 Ordered CBC WITH ELECTRONIC DIFF [HEME] Stat Lab 01/08/19 13:07 Ordered COMPREHENSIVE METABOLIC PANEL [CHEM] Stat Lab 01/08/19 13:07 Ordered INFLUENZA SCREEN A/B Stat Lab 01/08/19 13:07 Ordered TROPONIN T Stat Lab 01/08/19 13:07 Ordered URINALYSIS [URINALYSIS] Stat Lab 01/08/19 12:59 Uncollected EKG [EKG] Stat Ther 01/08/19 12:59 Ordered Result Diagrams: 01/08/19 13:00 01/08/19 13:00 - EKG 1 Time of EKG reading by physician:: 16:02 EKG Read and Signed by:: Cecil Flanagan EKG Interpretation (*Must complete 3 of following elements*): Abnormal Rate: 96 Rhythm: SR w/ supraventricular complexes and w/ occ pvc [place]: normal QRS: LVH, PVC's AR Interval: normal ST Wave: normal - XRAY 1 XRAY: Bilateral XRAY Study: Chest Impression: See EMR Report (CHEST-1 VIEW - 01/08/2019 INDICATION: cough COMPARISON: 10/18/2018 FINDINGS: Stable sternotomy changes. Heart size is top normal. No infiltrates or edema. There is some stable linear scarring in the lateral left midlung. IMPRESSION: No significant change from prior. No acute process. Electronically signed by Chano Chance 01/08/2019 1:19 PM 01/08/19 1319 Interpreting Physician: Chano Chance MD Dictated Date/Time: 03/24 1316 cc: Cecil Flanagan MD; Michael Camacho MD) - CONSULTS/PCP/HOSPITALIST Notification #1 *Consult/PCP/Hospitalist*: Dr [place] for Dr Real Time Discussed: 18:19 Consult Disposition: Will see in ED, Admit Departure - Departure Date of Disposition Decision: 01/08/19 Time of Disposition Decision: 18:16 DIAGNOSIS: GI bleeding, Anemia, Pancytopenia, Renal insufficiency Disposition: ADMITTED INPATIENT 09 Certified Medical Emergency: Emergent Condition: Fair Referrals and Follow-Ups: Michael Camacho MD [Primary Care Provider] - - Critical Care Note This patient required my direct & personal management of CC.: No Attestation - Physician/ SUE Attestation Patient care was provided by Advanced Practice Provider:: No The physician spent face to face time with patient:: Yes Advanced Practice Provider documentation review:: Supervising physician onsite and consulted in the evaluation and care of this patient. The physician did have a face to face encounter with the patient. This chart was documented by the indicated scribe, (Tosha Summers Scribe) and accurately reflects the services I performed and decisions made by me, Cecil Flanagan MD, as attested by the provider's signature.
[2019-01-08 18:24] LABS: URINE SOURCE CLEAN CATCH
[2019-01-08 18:28] LABS: BILIRUBIN URINE NEGATIVE (NEGATIVE); BLOOD URINE NEGATIVE (NEGATIVE); COLOR YELLOW; GLUCOSE URINE TRACE mg/dL (NEGATIVE); KETONE URINE NEGATIVE (NEGATIVE); LEUKOCYTES URINE NEGATIVE (NEGATIVE); NITRITE URINE NEGATIVE (NEGATIVE); PROTEIN URINE TRACE mg/dL (NEGATIVE); SP GRAVITY URINE 1.022; TURBIDITY URINE CLEAR (CLEAR); UROBILINOGEN URINE NORMAL (NORMAL)
[2019-01-08 18:30] LABS: UR EPITHELIAL CELLS <10 /HPF (<10); URINE BACTERIA NEGATIVE /HPF; URINE RBC <10 /HPF (<10); URINE WBC <10 /HPF (<10)
[2019-01-08] MEDS ORDERED: DUONEB (A & A) INH PRN (20:24)
[2019-01-08] MEDS ORDERED: LEVAQUIN 500 MG/D5W 500 MG/100 ML IVPB IV SCH (20:30)
[2019-01-08] MEDS ORDERED: PROTONIX IV SCH (20:30)
[2019-01-08] MEDS ORDERED: LASIX IV SCH (20:30)
[2019-01-08] MEDS ORDERED: SODIUM CHLORIDE 0.9% INJ SCH (20:30)
[2019-01-08] MEDS ORDERED: REQUIP PO SCH (21:00)
[2019-01-08] MEDS ORDERED: BUSPAR PO SCH (21:00)
[2019-01-08] MEDS ORDERED: MIRALAX PO SCH (21:00)
[2019-01-08] MEDS ORDERED: LOPID PO SCH (21:00)
[2019-01-08] MEDS ORDERED: DESYREL PO SCH (21:00)
[2019-01-08] MEDS ORDERED: REMERON PO SCH (21:00)
--- NOTE | 2019-01-08 21:02 | HISTORY AND PHYSICAL ---
CHIEF COMPLAINT: Shortness of breath, cough, wheezing, anemia, heme-positive stools. HISTORY OF PRESENT ILLNESS: He is a 78-year-old white male patient of Dr. Camacho. He had a similar presentation last year with chronic anemia due to diverticular bleeding. He continues to smoke. He was brought in the emergency room with the above symptoms. Hemoglobin 7, hematocrit 23. Most of the history was obtained from the patient's son at bedside. He continues to smoke despite COPD, CAD and oxygen. The patient denies any abdominal pain. Basically admitted to the hospital with (1) anemia due to chronic GI bleeding, (2) acute COPD exacerbation. PAST MEDICAL HISTORY: 1. COPD, oxygen dependent. 2. Chronic tobacco abuse. 3. Diverticular bleeding. 4. CLL. 5. Coronary artery disease. 6. Hypertension. 7. Hyperlipidemia. 8. Diastolic heart failure. 9. Peripheral vascular disease. 10. Status post carotid surgeries. 11. Restless legs syndrome. 12. Hypothyroidism. 13. Benign hypertrophic prostate. 14. Chronic kidney disease. 15. Depression. 16. Acid reflux disease. 17. Cataracts present. 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 19. Seborrheic dermatitis. PAST SURGICAL HISTORY: Reported bypass surgery, partial colectomy, back surgery, left carotid endarterectomy. MEDICATIONS: 1. Trazodone 50 mg at bedtime. 2. Remeron 15 at bedtime. 3. BuSpar 15 p.o. b.i.d. 4. Cymbalta 60 daily. 5. Synthroid 50 mcg daily. 6. Simvastatin 20 daily. 7. Lopid 600 p.o. b.i.d. 8. Potassium 20 mEq daily. 9. Lasix 40 mg daily. 10. Iron sulfate 325 daily. 11. Requip 0.5 at bedtime. 12. DuoNeb q.6 as needed. 13. Folic acid 1 mg daily, 14. Prednisone 15 daily. 15. MiraLAX 17 g daily. ALLERGIES: Not known. SOCIAL HISTORY: He is single. His 5 years ago. Lives in [place] with one of his sons. He is a father of 6 children. Smoking 1 pack a day. No alcohol. He did receive flu vaccine in 2018. He also reported pneumococcal vaccine 23 in 2014. FAMILY HISTORY: Both parents of old age. REVIEW OF SYSTEMS: HEENT: No headache. No vision problem. No earache. No sore throat. Neck: He has no goiter. No lymphadenopathy. No bruit. Cardiopulmonary: No chest pain. Basically shortness of breath, coughing and wheezing. GI: Bleeding per rectum. : No history of hesitancy, frequency or dysuria. No swelling of feet. No joint pains. Chronic back pain. Neurologic: No focal symptoms, weakness or seizures. PHYSICAL EXAMINATION: VITAL SIGNS: He is afebrile. Pulse is 100, blood pressure is stable, 98%. HEENT: Atraumatic, normocephalic. Pupils equal and react to light. Cataracts present. Rhinophyma seen with seborrheic rash on the face. Tongue is in midline. NECK: Supple. JVD. Unable to see the scar. CHEST: Bilateral air entry, wheezing. HEART: Distant heart sounds. ABDOMEN: Belly is soft. Midline abdominal scar present. He also had some small incisional hernia present. RECTAL: Exam deferred. Heme-positive stools. EXTREMITIES: No edema. NEUROLOGIC: No obvious neurological deficits noted. LABORATORY DATA: CBC: White cell count 9.5, hematocrit 23, platelets 110,000. SMA 7: Sodium 137, potassium 4.3, BUN 23, creatinine 1.5, glucose 161. Urinalysis is clear. DIAGNOSTIC DATA: Chest x-ray: No significant change; no acute process noted. ASSESSMENT AND PLAN: 1. A 78-year-old white gentleman, admitted to the hospital with acute chronic obstructive pulmonary disease exacerbation, on oxygen. Continue on bronchodilators, low dose of intravenous steroids and intravenous antibiotics. 2. Coronary artery disease, status post bypass. Continue on secondary prevention. 3. Left carotid endarterectomy. Stable. 4. Anemia. Heme-positive stool due to diverticular bleeding. Keep hematocrit around 30. We will slowly transfuse a unit of packed red blood cells. We will defer the workup with Dr. Camacho. 5. Reconcile home medicines. 6. Ongoing tobacco abuse. Nicotrol patches. Discussed the plan of care with the family members. The patient was seen in the emergency room. Will be admitted on the floor. cc: Aleksandr [place] MD
[2019-01-08] MEDS ORDERED: NS 500 ML ONE (23:45)
[2019-01-09 06:13] LABS: BASO# 0.02 X1000 (0.0-0.2); BASO% 0.1 % (0.0-0.8); EOS# 0.68 X1000 (0.0-0.7); EOS% 3.3 % (0.0-10.0); HEMATOCRIT 27.4 % (42.0-52.0); HEMOGLOBIN 8.5 g/dL (14.0-18.0); MPV 10.1 FL (7.4-10.4); PLT 130 X1000 (130-400); RBC 2.74 XMIL (4.7-6.1); RDW 18.1 % (11.5-14.5); WBC 20.51 X1000 (4.8-10.8)
[2019-01-09 06:24] LABS: LYMPHS 84 % (21-51); SEGS 14 % (42-75)
[2019-01-09 06:26] LABS: CALCIUM 8.4 mg/dL (8.8-10.2); CREATININE 1.5 mg/dL (0.7-1.2); POTASSIUM 4.4 mmol/L (3.5-5.1)
[2019-01-09] MEDS ORDERED: PROTONIX IV SCH (06:45)
[2019-01-09] MEDS ORDERED: ROCEPHIN 1 GM in NS 50 ML IV SCH (06:45)
[2019-01-09] MEDS ORDERED: SODIUM CHLORIDE 0.9% INJ SCH (06:45)
[2019-01-09] MEDS ORDERED: SYNTHROID PO SCH (07:00)
--- NOTE | 2019-01-09 07:10 | PROGRESS NOTE ---
DATE: 01/09/2019 SUBJECTIVE: Mr. Phillips is a 78-year-old, white gentleman, admitted with shortness of breath, cough, wheezing, anemia, heme-positive stool. The patient does have underlying COPD, history of diverticular disease of the colon. The patient was feeling weak. Unfortunately, patient is still smoking. His hemoglobin dropped. Hemoglobin a few days ago 9.2 and yesterday and it was 7.3. The patient also has chronic lymphocytic leukemia, cough with expectoration, minimally increased shortness of breath, decreased exercise tolerance. No typical chest pain. The patient was feeling fatigued and tired. OBJECTIVE: Vital signs: His vital signs per the admission history physical noted. Vital signs reviewed. Neck: Supple. No JVD. Lungs: Bibasilar crepitations. Occasional wheezing. Heart: S1 and S2 heard. Abdomen: Soft, globular. Bowel sounds present. Patient does have an umbilical hernia and ventral hernia. Extremities: No cyanosis, clubbing. No acute DVT. Central nervous system: Alert, awake able to move all 4 limbs. MEDICATIONS: Patient labs and medication noted. LABORATORY DATA: Done this morning, WBC count 20.51. The patient does have hemoglobin of 8.5, lymphocytosis. BUN was 24, creatinine 1.5. Urinalysis results reviewed. Chest x-ray noted. PLAN: Overall plan discussed with the patient. We will continue current treatment and close observation. cc: MD Aleksandr [place]wood MD
--- NOTE | 2019-01-09 08:09 | EKG Report ---
Test Performed on : 01/08/2019 4:02:36 PM Test Reason : weakness Blood Pressure : / mmHG Vent. Rate : 096 BPM Atrial Rate : 075 BPM P-R Int : 160 ms QRS Dur : 084 ms QT Int : 374 ms P-R-T Axes : 057 043 111 degrees QTc Int : 472 ms Sinus rhythm. with premature supraventricular complexes. and with occasional premature ventricular co mplexes. Left ventricular hypertrophy with repolarization abnormality Abnormal ECG When compared with ECG of 08-JAN-2019 16:01, (Unconfirmed) No significant change was found Unconfirmed Result
[2019-01-09] MEDS ORDERED: FERROUS SULFATE PO SCH (09:00)
[2019-01-09] MEDS ORDERED: PREDNISONE PO SCH (09:00)
[2019-01-09] MEDS ORDERED: CYMBALTA PO SCH (09:00)
[2019-01-09] MEDS ORDERED: FOLIC ACID PO SCH (09:00)
[2019-01-09] MEDS ORDERED: CARAFATE PO SCH (09:00)
[2019-01-09] MEDS ORDERED: SOLU-MEDROL IV SCH (09:00)
[2019-01-09] MEDS: KLOR-CON PO SCH (09:52)
[2019-01-09] MEDS: DUONEB (A & A) INH SCH ×3 (10:35→21:04)
[2019-01-09] MEDS ORDERED: ZOCOR PO SCH (21:00)
[2019-01-09] MEDS: ZOCOR PO SCH (23:29)
[2019-01-09] MEDS: BUSPAR PO SCH (23:29)
[2019-01-09] MEDS: REMERON PO SCH (23:30)
[2019-01-09] MEDS: REQUIP PO SCH (23:30)
[2019-01-09] MEDS: DESYREL PO SCH (23:30)
[2019-01-09] MEDS: MIRALAX PO SCH (23:31)
[2019-01-10] MEDS: DUONEB (A & A) INH SCH ×4 (06:23→22:50)
[2019-01-10] MEDS: SYNTHROID PO SCH (06:35)
--- NOTE | 2019-01-10 07:00 | PROGRESS NOTE ---
DATE: 01/10/2019 SUBJECTIVE: Mr. Phillips is doing fair. He does have chronic cough with scanty sputum production. No high-grade fever or chills. The patient does get short of breath with undue exertion. No bleeding per rectum. Oral intake is fair. No typical chest pain. The patient did have panic attack this morning. OBJECTIVE: Vital signs: Noted. Neck: Supple. No JVD. Lungs: Bibasilar crepitations. Occasional wheezing. Cardiovascular: S1 and S2 heard. Abdomen: Soft, globular. Bowel sounds present. Extremities: No cyanosis, clubbing. Minimal swelling. DRUPAL PHP DEVELOPER: Alert, awake. Able to move all 4 limbs. LABORATORY DATA: Lab data for this morning is pending. ASSESSMENT: The patient's problems include 1. Shortness of breath most likely due to symptomatic anemia of chronic disease and blood loss anemia. 2. Chronic obstructive pulmonary disease exacerbation. 3. Coronary artery disease. 4. History suggestive of benign prostatic hypertrophy. 5. Chronic lymphocytic leukemia. PLAN: Labs and medication noted. Will continue current treatment and close observation. cc: MD Aleksandr Atwood MD
[2019-01-10 07:12] LABS: BASO# 0.02 X1000 (0.0-0.2); BASO% 0.1 % (0.0-0.8); EOS# 0.55 X1000 (0.0-0.7); HEMATOCRIT 27.8 % (42.0-52.0); HEMOGLOBIN 8.4 g/dL (14.0-18.0); IMM GRAN# 0.04 X1000 (0.0-0.04); IMM GRAN% 0.2 % (0.0-0.5); LYMPH# 15.46 X1000 (1.2-3.4); LYMPH% 84.1 % (20.5-51.1); MCHC 30.2 g/dL (33-37); MCV 102.6 FL (81-99); MONO# 0.81 X1000 (0.11-0.59); MONO% 4.4 % (1.7-9.3); NEUT# 1.51 X1000 (1.4-6.5); NEUT% 8.2 % (42.2-75.2); PLT 136 X1000 (130-400); RBC 2.71 XMIL (4.7-6.1); RDW 18.2 % (11.5-14.5); WBC 18.39 X1000 (4.8-10.8)
[2019-01-10 07:33] LABS: CALCIUM 8.1 mg/dL (8.8-10.2); CREATININE 1.6 mg/dL (0.7-1.2); POTASSIUM 4.6 mmol/L (3.5-5.1)
[2019-01-10 07:52] LABS: EOS 3 % (1-10); LYMPHS 83 % (21-51); MONO 5 % (1-9); SEGS 9 % (42-75)
[2019-01-10] MEDS: ROCEPHIN 1 GM in NS 50 ML IV SCH (07:56)
[2019-01-10] MEDS: LOPID PO SCH ×2 (08:17→17:43)
[2019-01-10] MEDS: BUSPAR PO SCH ×3 (08:17→20:04)
[2019-01-10] MEDS: LASIX PO SCH (08:17)
[2019-01-10] MEDS: MIRALAX PO SCH ×3 (08:18→20:05)
[2019-01-10] MEDS: CYMBALTA PO SCH (08:18)
[2019-01-10] MEDS: FERROUS SULFATE PO SCH (08:18)
[2019-01-10] MEDS: FOLIC ACID PO SCH (08:18)
[2019-01-10] MEDS: PREDNISONE PO SCH (13:01)
--- NOTE | 2019-01-10 16:25 | EKG Report ---
Test Performed on : 01/10/2019 4:11:12 PM Test Reason : SOB Blood Pressure : / mmHG Vent. Rate : 063 BPM Atrial Rate : 063 BPM P-R Int : 160 ms QRS Dur : 094 ms QT Int : 412 ms P-R-T Axes : 053 033 116 degrees QTc Int : 421 ms Normal sinus rhythm. T wave abnormality, consider lateral ischemia Abnormal ECG When compared with ECG of 08-JAN-2019 16:02, (Unconfirmed) premature ventricular complexes. are no longer present premature supraventricular complexes. are no longer present Vent. rate has decreased BY [address] no longer depressed in Inferior leads QT has shortened Unconfirmed Result
[2019-01-10] MEDS: DESYREL PO SCH ×2 (19:54→20:05)
[2019-01-10] MEDS: REMERON PO SCH ×2 (19:54→20:05)
[2019-01-10] MEDS: ZOCOR PO SCH ×2 (19:54→20:07)
[2019-01-10] MEDS: REQUIP PO SCH (20:06)
[2019-01-11] MEDS: DUONEB (A & A) INH SCH ×4 (03:36→21:40)
[2019-01-11] MEDS: SYNTHROID PO SCH ×3 (06:07→06:16)
[2019-01-11 06:12] LABS: BASO# 0.01 X1000 (0.0-0.2); BASO% 0.1 % (0.0-0.8); EOS# 0.05 X1000 (0.0-0.7); EOS% 0.5 % (0.0-10.0); HEMATOCRIT 23.9 % (42.0-52.0); HEMOGLOBIN 7.4 g/dL (14.0-18.0); LYMPH# 8.37 X1000 (1.2-3.4); LYMPH% 81.3 % (20.5-51.1); MCH 31.2 PG (27-31); MCV 100.8 FL (81-99); MONO# 0.41 X1000 (0.11-0.59); MPV 9.9 FL (7.4-10.4); NEUT# 1.46 X1000 (1.4-6.5); NEUT% 14.1 % (42.2-75.2); PLT 104 X1000 (130-400); RBC 2.37 XMIL (4.7-6.1); RDW 17.2 % (11.5-14.5)
[2019-01-11] MEDS: ROCEPHIN 1 GM in NS 50 ML IV SCH (06:13)
[2019-01-11 06:36] LABS: LYMPHS 88 % (21-51); SEGS 12 % (42-75)
[2019-01-11 07:00] LABS: CALCIUM 8.2 mg/dL (8.8-10.2); CREATININE 1.5 mg/dL (0.7-1.2); POTASSIUM 4.4 mmol/L (3.5-5.1)
--- NOTE | 2019-01-11 07:15 | PROGRESS NOTE ---
DATE: 01/11/2019 SUBJECTIVE: Mr. Phillips is feeling fair. The patient does have chest congestion and cough, wheezing, mild shortness of breath. No typical chest pain. Complaining of epigastric discomfort and bloating. No nausea or vomiting. No bleeding per rectum. The patient does feel weak. Patient admitted with symptomatic anemia, COPD exacerbation. OBJECTIVE: Vital signs: Noted. Neck: Supple. No JVD. Lungs: Bilateral good air entry present. Bibasilar crepitation. Occasional wheezing. Cardiovascular: S1 and S2 heard. Abdomen: Soft, globular. Bowel sounds present. Mild epigastric tenderness. No guarding or rigidity. Extremities: No cyanosis, clubbing. No acute DVT. Central nervous system: Alert, awake. Able to move all 4 limbs. LABORATORY DATA: Done today. Hemoglobin was 7.4, hematocrit 23.9 which dropped again. Patient does have lymphocytosis. IMPRESSION: 1. Chronic obstructive pulmonary disease exacerbation. 2. Symptomatic anemia, most likely of chronic disease and blood loss. 3. Hyperlipidemia. 4. Gastritis. 5. Benign prostatic hypertrophy. PLAN: I am going to transfuse 2 units packed RBC. The patient was on Protonix which I will resume, Carafate. Continue oxygen, bronchodilator treatment and close observation. cc: MD Aleksandr Atwood MD
[2019-01-11] MEDS ORDERED: LASIX IV ONE (08:00)
[2019-01-11] MEDS: MIRALAX PO SCH ×2 (08:00→21:07)
[2019-01-11] MEDS: CYMBALTA PO SCH (08:09)
[2019-01-11] MEDS: LOVENOX SUBQ SCH (08:09)
[2019-01-11] MEDS: PROTONIX IV SCH (08:09)
[2019-01-11] MEDS: KLOR-CON PO SCH (08:10)
[2019-01-11] MEDS: PREDNISONE PO SCH (08:10)
[2019-01-11] MEDS: BUSPAR PO SCH ×2 (08:10→21:08)
[2019-01-11] MEDS: CARAFATE PO SCH ×3 (08:10→16:26)
[2019-01-11] MEDS: FERROUS SULFATE PO SCH (08:10)
[2019-01-11] MEDS: LOPID PO SCH ×2 (08:10→16:26)
[2019-01-11] MEDS: FOLIC ACID PO SCH (08:11)
[2019-01-11] MEDS: SODIUM CHLORIDE 0.9% INJ SCH (08:21)
[2019-01-11] MEDS ORDERED: NS 500 ML IV SCH (09:00)
[2019-01-11] MEDS: REMERON PO SCH (21:08)
[2019-01-11] MEDS: REQUIP PO SCH (21:08)
[2019-01-11] MEDS: DESYREL PO SCH (21:08)
[2019-01-11] MEDS: ZOCOR PO SCH (21:09)
[2019-01-12] MEDS: DUONEB (A & A) INH SCH ×4 (03:34→21:08)
[2019-01-12] MEDS: PROTONIX IV SCH ×2 (05:41→07:35)
[2019-01-12] MEDS: SYNTHROID PO SCH ×2 (05:41→07:36)
[2019-01-12] MEDS: CARAFATE PO SCH ×4 (05:41→16:55)
[2019-01-12] MEDS: LOVENOX SUBQ SCH ×2 (05:41→07:28)
[2019-01-12] MEDS: ROCEPHIN 1 GM in NS 50 ML IV SCH ×2 (05:41→07:27)
[2019-01-12] MEDS: CYMBALTA PO SCH (10:24)
[2019-01-12] MEDS: BUSPAR PO SCH ×2 (10:24→22:53)
[2019-01-12] MEDS: LOPID PO SCH ×2 (10:25→20:03)
[2019-01-12] MEDS: LASIX PO SCH (10:26)
[2019-01-12] MEDS: FOLIC ACID PO SCH (10:26)
[2019-01-12] MEDS: PREDNISONE PO SCH (10:27)
[2019-01-12] MEDS: MIRALAX PO SCH ×2 (10:28→21:24)
[2019-01-12] MEDS: FERROUS SULFATE PO SCH (10:28)
[2019-01-12] MEDS: LASIX IV ONE (14:09)
[2019-01-12 16:37] LABS: HEMATOCRIT 30.4 % (42.0-52.0); HEMOGLOBIN 9.5 g/dL (14.0-18.0); MCH 31.8 PG (27-31); MCHC 31.3 g/dL (33-37); MCV 101.7 FL (81-99); MPV 10.2 FL (7.4-10.4); RBC 2.99 XMIL (4.7-6.1); RDW 18.6 % (11.5-14.5); WBC 13.05 X1000 (4.8-10.8)
--- NOTE | 2019-01-12 18:51 | PROGRESS NOTE ---
DATE: 01/12/2019 78-year-old white male admitted to the hospital on 01/08/2019 for acute COPD exacerbation as well as heme-positive stools. The patient did receive 2 units of packed RBCs. He has history of chronic GI bleeding. EXAMINATION: Is 97.8 degrees, pulse is 60, blood pressure is 130/56, is on 4 L nasal cannula 95%. He is not cyanotic.Chest: Bilateral wheezing. Heart: Distant heart sounds. Belly: Is soft, obese, nontender. LABS: CBC: White cell count 10, hematocrit 23, MCV is 100, platelets 104,000, SMA 7, sodium 134, potassium 4.4, BUN 30, creatinine 1.5. ASSESSMENT AND PLAN: 1. GI bleeding due to diverticular bleeding, will transfuse 1 unit of packed RBC today. Follow up on Lasix. 2. Acute COPD exacerbation. Continue oxygen, IV ceftriaxone, prednisone 15 mg daily. 3. DVT prophylaxis, Dr. givens started on Lovenox. Continue home medications as per order sheet. Keep the hematocrit around 30. We will check the CBC in the morning. LEVEL OF DOCUMENTATION: 25 minutes. cc: Aleksandr [place] MD MTDD
[2019-01-12] MEDS: REQUIP PO SCH (22:53)
[2019-01-12] MEDS: REMERON PO SCH (22:53)
[2019-01-12] MEDS: DESYREL PO SCH (22:53)
[2019-01-12] MEDS: ZOCOR PO SCH (23:55)
[2019-01-13] MEDS: DUONEB (A & A) INH SCH ×4 (03:24→22:30)
[2019-01-13] MEDS: SYNTHROID PO SCH (06:25)
[2019-01-13] MEDS: ROCEPHIN 1 GM in NS 50 ML IV SCH (06:25)
[2019-01-13] MEDS: PROTONIX IV SCH (06:25)
[2019-01-13] MEDS: SODIUM CHLORIDE 0.9% INJ SCH (06:25)
[2019-01-13] MEDS: LOVENOX SUBQ SCH (06:25)
[2019-01-13] MEDS: CARAFATE PO SCH ×3 (06:25→20:43)
[2019-01-13 07:14] LABS: CALCIUM 8.2 mg/dL (8.8-10.2); CREATININE 1.6 mg/dL (0.7-1.2); POTASSIUM 4.1 mmol/L (3.5-5.1)
[2019-01-13 07:42] LABS: BASO# 0.01 X1000 (0.0-0.2); BASO% 0.1 % (0.0-0.8); EOS# 0.08 X1000 (0.0-0.7); EOS% 0.7 % (0.0-10.0); HEMOGLOBIN 8.5 g/dL (14.0-18.0); IMM GRAN# 0.02 X1000 (0.0-0.04); IMM GRAN% 0.2 % (0.0-0.5); LYMPH# 9.27 X1000 (1.2-3.4); LYMPH% 78.2 % (20.5-51.1); MCH 31.7 PG (27-31); MCHC 31.5 g/dL (33-37); MCV 100.7 FL (81-99); MONO# 0.84 X1000 (0.11-0.59); MONO% 7.1 % (1.7-9.3); MPV 10.2 FL (7.4-10.4); NEUT# 1.63 X1000 (1.4-6.5); NEUT% 13.7 % (42.2-75.2); PLT 101 X1000 (130-400); RBC 2.68 XMIL (4.7-6.1); RDW 17.8 % (11.5-14.5); WBC 11.85 X1000 (4.8-10.8)
[2019-01-13] MEDS: MIRALAX PO SCH ×2 (11:00→22:41)
[2019-01-13] MEDS: PREDNISONE PO SCH (12:16)
[2019-01-13] MEDS: BUSPAR PO SCH ×2 (12:16→22:38)
[2019-01-13] MEDS: CYMBALTA PO SCH (12:17)
[2019-01-13] MEDS: KLOR-CON PO SCH (12:17)
[2019-01-13] MEDS: LOPID PO SCH ×2 (12:17→16:54)
[2019-01-13] MEDS: FOLIC ACID PO SCH (12:19)
[2019-01-13] MEDS: FERROUS SULFATE PO SCH (12:19)
--- NOTE | 2019-01-13 13:22 | PROGRESS NOTE ---
DATE: 01/13/2019 SUBJECTIVE: The patient is anxious to go home. He did not receive the packed RBCs. There was no CBC after 2 units. Hematocrit was 30; today, it was 27. He was bleeding before with diverticular bleeding. REVIEW OF SYSTEMS: None reported. OBJECTIVE: Vital Signs: Temperature is 98.3, pulse is 66, blood pressure 147/59. HEENT: Within normal limits. Lungs: Decreased wheezing. Heart: Distant heart sounds. Abdomen: Belly is soft, obese. Neurologic: No neurological deficits. LABORATORY DATA: White cell count 11, hematocrit 27, platelets 101,000. SMA-7: Sodium 139, potassium 4.1, chloride 96, BUN 33, creatinine 1.6. ASSESSMENT AND PLAN: 1. Gastrointestinal bleeding due to diverticular bleeding. Transfuse 1 unit. Repeat labs in the morning. 2. Chronic obstructive pulmonary disease, stable. 3. Coronary artery disease, status post bypass, stable. 4. History of chronic lymphocytic leukemia, stable. Continue present treatment, and repeat the labs in the morning. Dr. Camacho is going to follow up. LEVEL OF DOCUMENTATION: 25 minutes. cc: Aleksandr [place] MD
[2019-01-13] MEDS: REQUIP PO SCH (22:37)
[2019-01-13] MEDS: REMERON PO SCH (22:38)
[2019-01-13] MEDS: ZOCOR PO SCH (22:38)
[2019-01-13] MEDS: DESYREL PO SCH (22:38)
[2019-01-13] MEDS: LASIX IV ONE (23:43)
[2019-01-13] MEDS ORDERED: LASIX IV ONE (23:54)
[2019-01-14] MEDS: DUONEB (A & A) INH SCH ×5 (03:15→23:38)
[2019-01-14] MEDS: ROCEPHIN 1 GM in NS 50 ML IV SCH (06:38)
[2019-01-14] MEDS: SYNTHROID PO SCH (06:38)
[2019-01-14] MEDS: SODIUM CHLORIDE 0.9% INJ SCH (06:38)
[2019-01-14] MEDS: PROTONIX IV SCH (06:38)
[2019-01-14] MEDS: LOVENOX SUBQ SCH (06:38)
[2019-01-14] MEDS: CARAFATE PO SCH ×3 (06:38→16:44)
[2019-01-14 07:35] LABS: HEMATOCRIT 31.1 % (42.0-52.0); HEMOGLOBIN 9.6 g/dL (14.0-18.0); MCH 30.9 PG (27-31); MCHC 30.9 g/dL (33-37); MPV 10.1 FL (7.4-10.4); PLT 99 X1000 (130-400); RBC 3.11 XMIL (4.7-6.1); WBC 14.26 X1000 (4.8-10.8)
--- NOTE | 2019-01-14 07:41 | PROGRESS NOTE ---
DATE: 01/14/2019 SUBJECTIVE: The patient is doing fair. The patient still have some weakness, cough, and chest congestion. His hemoglobin is low. No gross bleeding per rectum. Denied any nausea or vomiting. No diarrhea, blood, or mucus in the stool. OBJECTIVE: Vital Signs: As noted. Neck: Supple. No. JVD. Lungs: Bibasilar crepitations. Heart: S1 and S2 heard. Abdomen: Soft, globular. Bowel sounds present. PAPER CUTTER OPERATOR: Alert, awake, and able to move all 4 limbs. ASSESSMENT AND PLAN: The patient's problems include: 1. Blood-loss anemia. The patient received a total of 3 units of packed RBC. Hemoglobin is still low. I am going to get GI consult. The patient is on proton pump inhibitor and Carafate. We are monitoring hemoglobin and hematocrit. 2. Chronic obstructive pulmonary disease exacerbation on oral steroid bronchodilator treatment and antibiotics. Will continue. 3. Chronic lymphocytic leukemia. 4. BPH. 5. Hypertension. 6. Hypothyroidism. 7. Labs and medications noted. We will continue current treatment and close observation. cc: MD Aleksandr [place] MD
[2019-01-14 07:46] LABS: CALCIUM 8.8 mg/dL (8.8-10.2); CREATININE 1.7 mg/dL (0.7-1.2); POTASSIUM 4.2 mmol/L (3.5-5.1)
[2019-01-14] MEDS: LOPID PO SCH ×2 (07:57→16:44)
[2019-01-14] MEDS: FERROUS SULFATE PO SCH ×2 (07:57→08:16)
[2019-01-14] MEDS: LASIX PO SCH (07:57)
[2019-01-14] MEDS: PREDNISONE PO SCH ×2 (07:57→08:15)
[2019-01-14] MEDS: FOLIC ACID PO SCH ×2 (07:57→08:16)
[2019-01-14] MEDS: BUSPAR PO SCH ×2 (07:58→08:15)
[2019-01-14] MEDS: CYMBALTA PO SCH ×2 (07:58→08:15)
[2019-01-14] MEDS: MIRALAX PO SCH (08:15)
[2019-01-14 08:20] LABS: EOS 2 % (1-10); HYPOCHROM 2+; LYMPHS 82 % (21-51); SEGS 6 % (42-75)
[2019-01-14 09:31] LABS: INR 0.95; PROTIME 13.4 Seconds (11.0-16.0)
[2019-01-14 09:32] LABS: PTT 27.4 Seconds (22.3-41.8)
--- NOTE | 2019-01-14 10:38 | GASTROENTEROLOGY CONSULTATION ---
DATE: 01/14/2019 REFERRING PHYSICIAN: Dr. Villalobos. REASON FOR CONSULTATION: Rectal bleeding. HISTORY OF PRESENT ILLNESS: In this regard, he is 78-year-old male, who was admitted on 01/08/2019 for shortness of breath, cough, and wheezing and he was diagnosed with acute COPD exacerbation. He also complained of rectal bleeding which worsened during the hospital course. His admission H H was 7.3 g hemoglobin and he required 3 units of blood transfusion and currently his hemoglobin has come up to 9.6 g. He reports last colonoscopy with Dr. Jameson 3 months ago which showed diverticulosis. He denies, vomiting, vomiting blood. PAST MEDICAL HISTORY: 1. COPD on home oxygen. 2. Dependent chronic tobacco abuse. 3. Diverticular bleeding. 4. CLL. 5. Coronary artery disease. 6. Hypertension. 7. Hyperlipidemia. 8. Diastolic heart failure. 9. Peripheral arterial disease. status post carotid surgery for carotid stenosis. 10. Restless legs syndrome. 11. Hypothyroidism. 12. Benign hypertrophy of the prostate. 13. Chronic kidney disease. 14. Depression. 15. Acid reflux with cataract. 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 PAST SURGICAL HISTORY: 1. Recent reported bypass surgery. 2. Partial colectomy. 3. Back surgery. 4. Left carotid endarterectomy. 5. Colonoscopy [address] Jameson. ALLERGIES: No known drug allergies. SOCIAL HISTORY: He is single. His 5 years ago. He lives in [place] with his son. He smokes 1 pack a day. No history of alcohol. FAMILY HISTORY: Noncontributory. MEDICATIONS IN THE HOSPITAL: 1. Remeron. 2. Ropinirole. 3. Zocor. 4. Trazodone. 5. Albuterol/ipratropium. 6. BuSpar. 7. Cymbalta. 8. Ferrous sulfate,. 9. Folic acid. 10. Lasix. 11. Protonix. 12. MiraLAX 17 g p.o. b.i.d. 13. Potassium chloride. 14. Ceftriaxone. 15. Sucralfate Lasix IV once. He is on full liquid diet. REVIEW OF SYSTEMS: Denies any evidence of current fevers, rigors, chills. Does complain of some baseline shortness of breath, and cough is getting better. He denies any nausea, vomiting, vomiting blood. He denies any abdominal pain. He does have some blood in the stools. His last bowel movement was yesterday. No history of arthritis. Denies any neurologic complaints. PHYSICAL EXAMINATION: Vitals: Temperature 98.5 degrees, pulse rate 62, respiratory 16, blood pressure 132/63 saturating 99% on 3 nasal cannula. Body weight of 213 pounds 7 ounces. BMI 29.8 kg/m2. General: Moderately nourished, sitting in chair, in no acute distress. HEENT: Pale conjunctivae. No icterus. Nasal cannula in place. Neck: Supple. Abdomen: Soft, protuberant. No guarding no rebound. Extremities: No cyanosis, clubbing. Neurologic: Alert, awake, oriented x3. LABS: Hemoglobin and hematocrit is 9.2, 31 white count of 14.26, platelet count of 99, sodium 141, potassium 4.2, chloride 95, bicarb 30, anion of 8, BUN of 33, creatinine 1.7, glucose 118, calcium is 8.8. IMPRESSION AND PLAN: 1. Rectal bleeding. 2. Anemia, required 3 units of blood transfusion. 3. Chronic obstructive pulmonary disease exacerbation. 4. Chronic lymphocytic leukemia. RECOMMENDATIONS: Will watch the patient's Hemoglobin and hematocrit and transfuse as needed. We will obtain the records from our clinic. He likely had diverticular bleeding. He has prior history of diverticular bleeding. We will keep him on MiraLAX. Will start him on Metamucil. We will start him on iron supplementation. We will watch his blood counts. If patient continues to drop hematocrit he may need repeat EGD and colonoscopy. We will decide based on his clinical course. In the meanwhile, continue treatment for COPD exacerbation. I counseled him to quit smoking completely. The above plans discussed with the patient and all questions answered. Please call us with any questions. cc: MD Aleksandr Ly MD Bharat K. Vakharia, MD MTDD
[2019-01-15] MEDS: ZOCOR PO SCH ×2 (00:29→21:17)
[2019-01-15] MEDS: BUSPAR PO SCH ×3 (00:29→21:18)
[2019-01-15] MEDS: MIRALAX PO SCH ×3 (00:29→21:20)
[2019-01-15] MEDS: REMERON PO SCH ×2 (00:30→21:18)
[2019-01-15] MEDS: REQUIP PO SCH ×2 (00:30→21:17)
[2019-01-15] MEDS: DESYREL PO SCH ×2 (00:30→21:21)
[2019-01-15] MEDS: METAMUCIL PO SCH ×3 (00:47→21:17)
[2019-01-15] MEDS: ANUSOL-HC CREAM PR SCH ×3 (00:47→21:16)
[2019-01-15] MEDS: DUONEB (A & A) INH SCH ×4 (03:10→22:20)
[2019-01-15 06:02] LABS: BASO# 0.02 X1000 (0.0-0.2); BASO% 0.1 % (0.0-0.8); EOS# 0.11 X1000 (0.0-0.7); EOS% 0.6 % (0.0-10.0); HEMOGLOBIN 10.6 g/dL (14.0-18.0); IMM GRAN# 0.03 X1000 (0.0-0.04); IMM GRAN% 0.2 % (0.0-0.5); LYMPH# 14.84 X1000 (1.2-3.4); MCH 30.9 PG (27-31); MCHC 31.2 g/dL (33-37); MCV 99.1 FL (81-99); MONO# 0.91 X1000 (0.11-0.59); MONO% 5.1 % (1.7-9.3); MPV 9.9 FL (7.4-10.4); NEUT# 1.97 X1000 (1.4-6.5); PLT 111 X1000 (130-400); RBC 3.43 XMIL (4.7-6.1); RDW 18.1 % (11.5-14.5); WBC 17.88 X1000 (4.8-10.8)
[2019-01-15 06:35] LABS: CALCIUM 8.4 mg/dL (8.8-10.2); CREATININE 1.5 mg/dL (0.7-1.2); POTASSIUM 3.9 mmol/L (3.5-5.1)
[2019-01-15 06:49] LABS: LYMPHS 82 % (21-51); MONO 6 % (1-9); SEGS 12 % (42-75)
[2019-01-15] MEDS: ROCEPHIN 1 GM in NS 50 ML IV SCH (06:54)
[2019-01-15] MEDS: SODIUM CHLORIDE 0.9% INJ SCH (06:55)
[2019-01-15] MEDS: SYNTHROID PO SCH (06:55)
[2019-01-15] MEDS: PROTONIX IV SCH (06:55)
[2019-01-15] MEDS: CARAFATE PO SCH ×3 (06:59→16:59)
--- NOTE | 2019-01-15 07:15 | PROGRESS NOTE ---
DATE: 01/15/2019 SUBJECTIVE: Mr. Phillips is feeling some better today. No apparent bleeding per rectum. Mild cough. No unusual expectoration. Denied any fever or chills. The patient does get short of breath with exertion. OBJECTIVE: Vital Signs: Noted. Neck: Supple. No JVD. Lungs: Bilateral occasional wheezing. CVS: S1 and S2 heard. Abdomen: Soft, globular. Bowel sounds present. Extremities: No cyanosis, clubbing. No acute DVT. HEDIS ABSTRACTOR: Alert, awake, able to move all 4 limbs. No acute DVT. LABORATORY DATA: Lab data done today did reveal mild leukocytosis, hemoglobin 10.6, hematocrit 34, platelet count 111,000. The patient does have lymphocytosis. BUN 35, creatinine 1.5. CONSIDERATION: 1. Chronic obstructive pulmonary disease exacerbation. 2. Blood loss anemia, most likely secondary to chronic gastrointestinal blood loss. 3. Chronic lymphocytic leukemia. 4. Hypothyroidism. Appreciate Gastroenterology's help managing the patient. I am going to monitor hemoglobin and hematocrit, advance diet. If the patient continues to do well, will plan discharging the patient home soon. PT, PTT results reviewed. cc: MD Aleksandr Atwood MD
[2019-01-15] MEDS: PREDNISONE PO SCH (09:02)
[2019-01-15] MEDS: FERROUS SULFATE PO SCH (09:02)
[2019-01-15] MEDS: FOLIC ACID PO SCH (09:02)
[2019-01-15] MEDS: LOPID PO SCH ×2 (09:02→16:59)
[2019-01-15] MEDS: CYMBALTA PO SCH (09:02)
[2019-01-15] MEDS: KLOR-CON PO SCH (09:02)
--- NOTE | 2019-01-15 11:21 | Diag Imaging Result Doc PS360 ---
CHEST-PORTABLE - 01/15/2019 INDICATION: increased SOB COMPARISON: 01/08/2019 FINDINGS: Stable hyperexpanded lungs consistent with COPD. Stable sternotomy changes. Heart size and pulmonary vascularity are top normal. No significant infiltrates or edema. IMPRESSION: COPD. No change from prior. Electronically signed by Chano Chance 01/15/2019 11:19 AM
[2019-01-15] MEDS ORDERED: LASIX IV ONE (17:02)
--- NOTE | 2019-01-15 22:19 | PROVIDER PROGRESS NOTE ---
Progress Note - - 01/15/2019 SUBJECTIVE: No acute overnight events. Afebrile. No N/V. Patient reports having a loose brown stool today without BRB or melena. Tolerating diet. No abdominal pain. OBJECTIVE Last Vital Signs Temp 98.7 F 01/15/19 19:49 Pulse 68 01/15/19 19:49 Resp 19 01/15/19 19:49 BP 153/66 01/15/19 19:49 Pulse Ox 100 01/15/19 19:49 Height 5 ft 11 in Weight 213 lb 7 oz on 3.5L NC GEN: awake, alert, NAD HEENT: anicteric, MMM NECK: supple CV: RRR, no murmurs PULM: coarse BS b/l ABD: lap scar, ventral hernia, mild tympany throughout, NT EXT: no cce NEURO: ambulatory, nonfocal LABS: 01/15/19 01/15/19 05:40 05:40 WBC 17.88 H Hgb 10.6 L Plt Count 111 L Segmented Neutrophils 12 L Sodium 138 Potassium 3.9 Chloride 93 L Carbon Dioxide 34 BUN 32 H Creatinine 1.5 H A/P: Mr. Phillips is a 78 year old man admitted with COPD exacerbation. Course complicated by rectal bleeding requiring blood transfusion likely secondary to diverticular bleeding. Hgb has remained stable for the last couple of days. Brown BM today. Patient had colonoscopy [address] Jameson. # Rectal bleeding: secondary 2/2 to diverticulosis # Diverticulosis: high fiber diet and bowel regimen # COPD exacerbation: patient on near home O2 # Leukocytosis: likely secondary to steroids # Anemia: from bleed; on iron therapy Will sign off. Please call with questions
[2019-01-16] MEDS: DUONEB (A & A) INH SCH ×2 (03:35→09:45)
[2019-01-16] MEDS: PROTONIX IV SCH (06:00)
[2019-01-16] MEDS: ROCEPHIN 1 GM in NS 50 ML IV SCH (06:00)
[2019-01-16] MEDS: SODIUM CHLORIDE 0.9% INJ SCH (06:00)
[2019-01-16] MEDS: CARAFATE PO SCH (06:01)
[2019-01-16] MEDS: SYNTHROID PO SCH (06:01)
--- NOTE | 2019-01-16 07:15 | DISCHARGE SUMMARY ---
ADMISSION DATE: 01/08/2019 DISCHARGE DATE: FINAL DISCHARGE DIAGNOSES: 1. Chronic obstructive pulmonary disease exacerbation. 2. Acute blood loss anemia secondary to lower gastrointestinal bleed, most likely due to diverticular bleeding. 3. Chronic respiratory failure. 4. Hypothyroidism. 5. Deconditioning. 6. Gastritis and reflux disease. 7. Hyperlipidemia. 8. Benign prostatic hypertrophy. 9. Chronic lymphocytic leukemia. 10. Osteoarthritis. 11. Constipation. 12. Bradycardia. 13. Situational depression. HISTORY OF PRESENT ILLNESS: Mr. Phillips is a 78-year-old gentleman admitted with weakness, anemia secondary to diverticular bleed, increasing shortness of breath, decreased exercise tolerance. Patient's H and H was dropping. Patient evaluated in the ER. Patient received blood transfusion. His H and H was staying low. Patient also had increasing cough, chest congestion, shortness of breath. Patient was treated with blood transfusion, IV antibiotics, pulmonary toilet. We started him on some IV steroid, p.o. prednisone. Patient's clinical condition gradually improved. GI consult obtained with Dr. Thompson, recommendation noted. The patient's clinical condition stabilized and improved. The patient is feeling better. Shortness of breath is getting better, H and H remained stable, and I am planning to discharge patient home today. DISCHARGE PLAN: Discussed at length with the patient. Encouraged smoking cessation. Watch for bleeding. Will resume home health. Follow up with me in 4 to 5 days. In case of more distress, call us back or go to emergency room. DISCHARGE PHYSICAL EXAMINATION: Vital signs: Blood pressure 151/55, pulse 64, respirations 16, temperature 98.1 degrees. Skin: Senile turgor. Neck: Supple. No JVD. Lungs: Bibasilar crepitations. Heart: S1 and S2 heard. Abdomen: Soft, globular. Bowel sounds present. No acute DVT. CASE MANAGEMENT SOCIAL WORKER: Alert, awake, able to move all 4 limbs. LAB DATA: Done yesterday, WBC count 17.88, hemoglobin 10.6, hematocrit 34, platelet count 111. Electrolytes: BUN 32, creatinine 1.5. Sodium 138, potassium 3.9. Overall patient received maximum benefit of hospitalization. His chest x-ray done yesterday noted so as the EKG. DISCHARGE CONDITION: Overall satisfactory. DISCHARGE PLAN: Discussed at length with the patient. cc: MD Aleksandr Atwood MD
[2019-01-16 07:54] VITALS: BP 157/68
[2019-01-16] MEDS: FOLIC ACID PO SCH (09:36)
[2019-01-16] MEDS: PREDNISONE PO SCH (09:37)
[2019-01-16] MEDS: CYMBALTA PO SCH (09:37)
[2019-01-16] MEDS: METAMUCIL PO SCH (09:39)
[2019-01-16] MEDS: ANUSOL-HC CREAM PR SCH (09:39)
[2019-01-16] MEDS: LOPID PO SCH (09:39)
[2019-01-16] MEDS: LASIX PO SCH (09:39)
[2019-01-16] MEDS: FERROUS SULFATE PO SCH (09:39)
[2019-01-16] MEDS: BUSPAR PO SCH (09:39)
[2019-01-16] MEDS: MIRALAX PO SCH (09:39)
== END 2019-01-16 10:56 | disposition home health service (06) | DRG 811 ==
LOC: ED 11:25 → 4N 20:39
PROVIDERS: ADMIT Internal Medicine; ATTEND Internal Medicine
CPT/HCPCS: 36430; 71010; 71045; 80048; 80053; 81001; 82270; 82948; 84484; 85025; 85027; 85610; 85730; 86850; 86900; 86901; 86920; 87275; 87276; 87804; 93005; 93010; 94640; 94761; 97162; 99285; A9270; C9113; J0696; J1650; J1940; J7040; J7506; J7512; P9016; S0164; XXXXX

== ENCOUNTER 2020-01-22 04:47 | Inpatient (IN) ==
[2020-01-22] MEDS ORDERED: DUONEB (A & A) INH ONE (04:49)
[2020-01-22] MEDS ORDERED: MAGNESIUM SULFATE 1 GM/D5W 1 GM/100 ML IVPB IV ONE (04:55)
--- NOTE | 2020-01-22 04:55 | PROVIDER DOCUMENTATION ---
HPI-Respiratory General - General Stated Complaint: sob Time Seen by Provider: 01/22/20 04:48 Source: patient, EMS Allergies/Adverse Reactions: Patient Allergies Allergy/AdvReac Type Severity Reaction Status Date / Time No Known Allergies Allergy Verified 08/25/19 09:37 Home Medications: Home Medication List Medication Instructions Recorded Confirmed Last Taken Type Trazodone [Desyrel] 50 mg PO QHS 08/21/14 08/25/19 07/16/17 20:00 History 50 MG Buspirone [Buspar] 15 mg PO BID #1 02/03/15 08/25/19 01/08/19 11:00 Rx Duloxetine [Cymbalta] 60 mg PO DAILY #1 02/03/15 08/25/19 01/08/19 11:00 Rx Levothyroxine [Synthroid] 50 microgm PO DAILY #1 02/03/15 08/25/19 07/16/17 07:00 Rx 50 MICROGM Mirtazapine [Remeron] 15 mg PO QHS #1 02/03/15 08/25/19 07/16/17 20:00 Rx 15 MG Simvastatin [Zocor] 20 mg PO DAILY 12/14/15 08/25/19 07/16/17 07:00 History 40 MG Gemfibrozil [Lopid] 600 mg PO BID 12/28/16 08/25/19 07/16/17 07:00 History 600 MG Furosemide [Lasix] 40 mg PO DIRECTED 01/25/18 08/25/19 01/21/18 08:00 History 40 mg Potassium Chloride E.r. [Klor-Con] 20 meq PO DIRECTED 01/25/18 08/25/19 01/21/18 09:00 History 20 meq Ferrous Sulfate 1 tab PO DAILY 08/04/18 08/25/19 01/08/19 11:00 History Ropinirole [Requip] 0.5 mg PO QHS 08/04/18 08/25/19 Unknown History Albuterol 2.5MG/Ipratrop 0.5MG 3 ml INH RTQ6H neb 08/09/18 08/25/19 01/07/19 20:00 Rx [Duoneb (A & A)] Folic Acid 1 mg PO DAILY #30 tablet 08/09/18 08/25/19 01/08/19 11:00 Rx Polyethylene Glycol 3350 [Miralax] 17 gm PO BID #60 powd.pack 08/09/18 08/25/19 Unknown Rx CefUROXIME [Ceftin] 500 mg PO Q12HR #8 tab 01/16/19 08/25/19 Unknown Rx Hydrocortisone 2.5% Cream 15 ahfu IN BID tube 01/16/19 08/25/19 Unknown Rx [Anusol-Hc Cream] Omeprazole [Prilosec] 40 mg PO DAILY #30 capsule.dr 01/16/19 08/25/19 Unknown Rx Psyllium Husk [Metamucil] 1 ea PO BID cap 01/16/19 08/25/19 Unknown Rx Sucralfate [Carafate] 1 gm PO AC tab 01/16/19 08/25/19 Unknown Rx - History of Present Illness-Resp Nature of Presenting Problem: Patient is a 79 year old white male with severe COPD requiring continuous home oxygen. Denies fever or productive cough. EMS report oxygen sat of 66% prior to arrival. Review of Systems - Adult - REVIEW OF SYSTEMS - ADULT Constitutional: denies: chills, fever Ears, Nose, Mouth & Throat: reports: see HPI Cardiovascular: denies: chest pain Respiratory: reports: cough, shortness of breath, wheezing Gastrointestinal: denies: abdominal pain, nausea, vomiting Genitourinary: denies: dysuria Integumentary: denies: rash Neurological: reports: no symptoms reported Psychiatric: reports: anxiety Endocrine: reports: no symptoms reported Hematologic/Lymphatic: reports: no symptoms reported All Other Systems: Reviewed and Negative Past History - Adult - PAST MEDICAL HISTORY-ADULT Review of Records: reports: Old Records Reviewed, Nursing Assessment Review, Medications Reviewed Major Childhood Illnesses: reports: denies history Cardiovascular: reports: CAD, HTN, hyperlipidemia, DE Respiratory: reports: asthma, COPD, sleep apnea Gastrointestinal: reports: diverticulosis, GI bleed, other (ischemic bowel with colon resection) Obstetrical/Gynecological: reports: denies history Genitourinary: reports: denies history Musculoskeletal: reports: denies history Neurological: reports: denies history Endocrine/Immune: reports: thyroid disorder Other Conditions: reports: denies history - PRIOR SURGERIES/PROCEDURES Surgical/Procedure History: reports: CABG, back/neck (back), other (colon surgery ) - PRIOR HOSPITALIZATIONS Prior Hospitalizations: reports: for similar symptoms - IMMUNIZATION STATUS Childhood Immunizations: See Nurse Assessment Flu Vaccine: See Nurse Assessment - FAMILY HISTORY Family History: reviewed, not pertinent Physical Exam-General - CONSTITUTIONAL General Appearance: alert, moderate distress, obese - EYES Eyes: other (clear) - HEAD, EARS, NOSE, MOUTH & THROAT HENMT: moist mucous membranes - NECK Neck: supple - RESPIRATORY Respiratory: decreased breath sounds, wheezing - CARDIOVASCULAR Cardiovascular: tachycardia - GASTROINTESTINAL (ABDOMEN) Abdominal Exam: non tender, soft - LYMPHATIC Lymphatic: no adenopathy, axilla node tender - MUSCULOSKELETAL Back Exam: normal inspection, no CVA tenderness Extremity: normal range of motion, non-tender - SKIN Integumentary: normal color, normal turgor, warm/dry - NEUROLOGIC Neurologic: grossly normal - PSYCHIATRIC Psych/Mental Status: oriented x 3, anxious Progress - PLAN OF CARE/RESULTS Progress/Plan/Lab Results: Vital Signs - 8 hr 01/22/20 04:51 01/22/20 05:00 Temperature 97.4 F L Pulse Rate 103 H 103 H Respiratory Rate 22 24 Blood Pressure 156/68 O2 Sat by Pulse Oximetry 95 99 Laboratory Results - last 24 hr 01/22/20 01/22/20 01/22/20 04:55 04:55 04:55 WBC 11.12 H RBC 3.81 L Hgb 11.0 L Hct 36.2 L MCV 95.0 MCH 28.9 MCHC 30.4 L RDW Std Deviation 13.2 Plt Count 53 L MPV 11.4 H Immature Gran % (Auto) 0.0 Neut % (Auto) 9.6 L Lymph % (Auto) 87.3 H [place] % (Auto) 1.2 L Eos % (Auto) 1.8 Baso % (Auto) 0.1 Immature Gran # (Auto) 0.00 Neut # (Auto) 1.07 L Lymph # (Auto) 9.71 H [place] # (Auto) 0.13 Eos # (Auto) 0.20 Baso # (Auto) 0.01 Specimen Type Sample Site pH pCO2 pO2 HCO3 Base Excess Oxyhemoglobin ABG O2 Sat (Calculated) ABG O2 Saturation ABG Carboxyhemoglobin ABG Methemoglobin [place] Test A-a O2 Difference Total Hemoglobin Lactate Liter Flow Blood Gas Modality Vent Mode FiO2 % Expiratory BiPAP Sodium Potassium Chloride Carbon Dioxide Anion Gap BUN Creatinine Estimated GFR/1.73 m2 BUN/Creatinine Ratio Glucose Calculated Osmolality Calcium Magnesium Total Bilirubin AST ALT Alkaline Phosphatase Troponin T High Sens 52 H [id number] Pept 608 H Total Protein Albumin Globulin Albumin/Globulin Ratio 01/22/20 01/22/20 04:55 05:11 WBC RBC Hgb Hct MCV MCH MCHC RDW Std Deviation Plt Count MPV Immature Gran % (Auto) Neut % (Auto) Lymph % (Auto) [place] % (Auto) Eos % (Auto) Baso % (Auto) Immature Gran # (Auto) Neut # (Auto) Lymph # (Auto) [place] # (Auto) Eos # (Auto) Baso # (Auto) Specimen Type ARTERIAL Sample Site R RADIAL pH 7.35 pCO2 79 H* pO2 75 HCO3 36.5 H Base Excess 14.9 H Oxyhemoglobin 94.0 L ABG O2 Sat (Calculated) 14.9 L ABG O2 Saturation 96.4 ABG Carboxyhemoglobin 1.90 ABG Methemoglobin 0.7 [place] Test YES A-a O2 Difference 539.0 Total Hemoglobin 11.2 L Lactate 1.40 Liter Flow 15.0 Blood Gas Modality BI PAP Vent Mode CPAP FiO2 % 100.0 Expiratory BiPAP 10.0 Sodium 142 Potassium 4.1 Chloride 93 L Carbon Dioxide 39 H Anion Gap 10 BUN 28 H Creatinine 1.6 H Estimated GFR/1.73 m2 42 BUN/Creatinine Ratio 18 Glucose 120 H Calculated Osmolality 290 Calcium 9.4 Magnesium 1.9 Total Bilirubin 0.65 AST 15 ALT 9 L Alkaline Phosphatase 51 Troponin T High Sens [id number]-Dtevghnmhdm Pept Total Protein 6.4 Albumin 4.6 Globulin 1.8 Albumin/Globulin Ratio 2.6 Orders Category Date Time Status Cardiac Monitoring DIRECTED Care 01/22/20 04:48 Active NEWS Score >or=5:Order NEWS Bundle S.O. NOW Care 01/22/20 05:00 Active CHEST-PORTABLE [RAD] Stat Exams 01/22/20 04:49 Taken ABG [RESP] Routine Lab 01/22/20 05:11 Completed BLOOD CULTURE [BLDCUL] Stat Lab 01/22/20 04:53 Uncollected BNP [PRO B-NATRIURETIC PEPTIDE] Stat Lab 01/22/20 04:55 Completed CBC WITH ELECTRONIC DIFF [HEME] Stat Lab 01/22/20 04:55 Completed CMP [COMPREHENSIVE METABOLIC PANEL] [CHEM] Stat Lab 01/22/20 04:55 Completed D-DIMER [COAG] Stat Lab 01/22/20 06:18 Uncollected MAGNESIUM [CHEM] Stat Lab 01/22/20 04:55 Completed TROPONIN T HIGH SENSITIVITY Stat Lab 01/22/20 04:55 Completed Albuterol 2.5MG/Ipratrop 0.5MG [Duoneb (A & A)] Med 01/22/20 04:49 Discontinued 3 ml INH NOW ONE Magnesium Sulfate 1 gm/D5w Med 01/22/20 04:55 Discontinued 1 gm in 100 ml IV NOW Methylprednisolone Sod Succ [Solu-Medrol] Med 01/22/20 05:09 Discontinued 125 mg IV NOW ONE Rocephin 1 gm/Ns IV Now Med 01/22/20 06:29 Ordered CefTRIAXONE [Rocephin] 1 gm 0.9% Sodium Chloride Inj [Ns] 50 ml IV NOW Aerosol Treatments Routine Oth 01/22/20 04:49 Completed Aerosol Treatments Stat Oth 01/22/20 04:49 Completed BIPAP Stat Oth 01/22/20 05:32 Active EKG [EKG] Stat Ther 01/22/20 06:32 Ordered Result Diagrams: 01/22/20 04:55 01/22/20 04:55 - XRAY 1 XRAY Study: Chest XRAY Interpretation: emphysematous changes, NAD - CONSULTS/PCP/HOSPITALIST Notification #1 *Consult/PCP/Hospitalist*: Dr. Johnson, hospitalist Time Discussed: 06:35 Consult Disposition: Admit Departure - Departure Date of Disposition Decision: 01/22/20 Time of Disposition Decision: 06:31 DIAGNOSIS: COPD exacerbation, Hypoxemia, Hypercarbia Disposition: ADMITTED INPATIENT 09 Certified Medical Emergency: Emergent Condition: Stable Referrals and Follow-Ups: None,PCP [Primary Care Provider] - - Critical Care Note This patient required my direct & personal management of CC.: Yes Total Time (mins): 95 Critical Care Statement: This patient required my direct personal management to treat or rule out processes, the absence of which, could potentiallly result in sudden, clinically significant life or limb threatening deterioration. Attestation - Physician/ SUE Attestation Patient care was provided by Advanced Practice Provider:: No The physician spent face to face time with patient:: Yes Advanced Practice Provider documentation review:: Supervising physician onsite and consulted in the evaluation and care of this patient. The physician did have a face to face encounter with the patient.
[2020-01-22] MEDS ORDERED: SOLU-MEDROL IV ONE (05:09)
[2020-01-22 05:22] LABS: ALLEN TEST YES; BE 14.9 mmoll (-3.0-3.0); BLOOD TYPE ARTERIAL; HCO3-(ACT) 36.5 mmoll (20.0-26.0); METHB 0.7 % (0.0-1.5); O2(CT) 14.9 mL/dL (15.0-23.0); PO2(98.6) 75 mmHg (60-100); SAMPLE BLOOD; SAO2 96.4 % (95.0-100.0); THB 11.2 g/dL (11.5-17.4); pH(98.6) 7.35 (7.35-7.45)
[2020-01-22 05:23] LABS: MODALITY BI PAP; PCO2(98.6) 79 mmHg (35-45)
[2020-01-22 05:35] LABS: BASO# 0.01 X1000 (0.0-0.2); BASO% 0.1 % (0.0-0.8); EOS% 1.8 % (0.0-10.0); HEMATOCRIT 36.2 % (42.0-52.0); LYMPH# 9.71 X1000 (1.2-3.4); LYMPH% 87.3 % (20.5-51.1); MCH 28.9 PG (27-31); MCHC 30.4 g/dL (33-37); MONO# 0.13 X1000 (0.11-0.59); MONO% 1.2 % (1.7-9.3); MPV 11.4 FL (7.4-10.4); NEUT# 1.07 X1000 (1.4-6.5); NEUT% 9.6 % (42.2-75.2); PLT 53 X1000 (130-400); RBC 3.81 XMIL (4.7-6.1); RDW 13.2 % (11.5-14.5); WBC 11.12 X1000 (4.8-10.8)
[2020-01-22 05:59] LABS: ALB/GLOB RATIO 2.6; ALBUMIN 4.6 g/dL (3.5-5.0); CALCIUM 9.4 mg/dL (8.8-10.2); CREATININE 1.6 mg/dL (0.7-1.2); MAGNESIUM 1.9 mg/dL (1.5-2.7); POTASSIUM 4.1 mmol/L (3.5-5.1); TOTAL BILIRUBIN 0.65 mg/dL (0.20-1.00); TOTAL PROTEIN 6.4 g/dL (6.3-8.3)
[2020-01-22] MEDS ORDERED: ROCEPHIN 1 GM in NS 50 ML IV ONE (06:29)
--- NOTE | 2020-01-22 07:09 | Diag Imaging Result Doc PS360 ---
EXAM: CHEST-PORTABLE 01/22/2020 HISTORY: sob TECHNIQUE: AP portable at 0509 COMMENT: There are platelike opacities present bilaterally which have not changed appreciably since 01/15/2019. There may be COPD. There are sternotomy wires. Overall the appearance the chest has not changed appreciably. IMPRESSION: Stable chest. Electronically signed by Travis Pascual 01/22/2020 7:07 AM
--- NOTE | 2020-01-22 07:54 | EKG Report ---
Test Performed on : 01/22/2020 06:43:18 AM Test Reason : sob Blood Pressure : / mmHG Vent. Rate : 064 BPM Atrial Rate : 064 BPM P-R Int : 136 ms QRS Dur : 090 ms QT Int : 416 ms P-R-T Axes : 050 029 109 degrees QTc Int : 429 ms Normal sinus rhythm. ST & T wave abnormality, consider lateral ischemia Abnormal ECG When compared with ECG of 10-JAN-2019 16:11, No significant change was found Unconfirmed Result
[2020-01-22] MEDS ORDERED: DUONEB (A & A) INH SCH (11:30)
[2020-01-22] MEDS ORDERED: KLOR-CON PO SCH (12:25)
[2020-01-22] MEDS ORDERED: LOVENOX SUBQ SCH (12:25)
[2020-01-22] MEDS: LOPID PO SCH ×2 (15:07→23:33)
[2020-01-22] MEDS: CYMBALTA PO SCH (15:08)
[2020-01-22] MEDS: PROTONIX IV SCH (15:08)
[2020-01-22] MEDS: SODIUM CHLORIDE 0.9% INJ SCH (15:08)
[2020-01-22] MEDS: SOLU-MEDROL IV SCH ×2 (15:08→23:33)
--- NOTE | 2020-01-22 17:43 | HISTORY AND PHYSICAL ---
CHIEF COMPLAINT: Shortness of breath. HISTORY: The patient is an 79-year-old white gentleman not doing well over the last few days. The patient had increasing shortness of breath, and decreased exercise tolerance. According to daughter, the patient was going to oncologist who changed his chemotherapy. Initially, patient was on IV which was changed to p.o. The patient did have problem with cough, congestion, and shortness of breath which was not getting better. Daughter told the patient to come and have evaluation with me PMD, but patient wanted to wait. Last night, the patient got more short of breath increasing cough, chest congestion, and decreased exercise tolerance. Because of increasing shortness of breath, the son called ambulance and patient was brought to the emergency room. In the emergency room, the patient was hypoxemic. O2 saturation was 66%. When the EMS arrived at home, patient was tachypneic and tachycardic. Evaluated by ER physician, and admitted for further care. The patient does have history of COPD on home oxygen and nebulizer treatment. The patient denied any high-grade fever or chills. Does have chronic cough with scanty sputum production. No typical chest pain or palpitations. Denied any nausea or vomiting. Oral intake variable. No recent weight loss or weight gain. The patient does have polyuria or polydipsia. No dysuria or hematuria. The patient was complaining of being constipated for the last few days. At times, with epigastric discomfort. No further history available at this time. Patient does have dyspnea on exertion. ALLERGIES: No known drug allergies. HOME MEDICATIONS: 1. [place]. 2. Aspirin. 3. Vitamin D3. 4. Lasix. 5. Lopid. 6. Imbruvica. 7. Synthroid. 8. Remeron. 9. Potassium. 10. Requip. 11. Zocor. 12. Flomax. 13. Trazodone. PAST MEDICAL HISTORY: Hypertension, hyperlipidemia, COPD, B-cell lymphoma, BPH, osteoarthritis, gastritis and reflux disease. Situational depression. Hypothyroidism. SOCIAL HISTORY: . The patient does smoke. Denied alcohol or substance abuse. Lives with his son. PAST SURGICAL HISTORY: Patient had CABG done many years ago. Partial colectomy. Back surgery. Left carotid endarterectomy. REVIEW OF SYSTEMS: As per HPI. Otherwise unobtainable. PHYSICAL EXAMINATION: GENERAL: Elderly white gentleman in mild distress. VITAL SIGNS: Blood pressure 156/68, pulse 103, respirations 22, temperature 97.4 degrees, and O2 saturation was on CPAP 95%. SKIN: Senile turgor. HEENT: Head atraumatic, normocephalic. [place] conjunctivae. Anicteric sclerae. Extraocular muscle movement normal. Fundus cannot be penetrated. Good oral hygiene. No tonsillopharyngeal congestion or exudate. Ears and nose benign. NECK: Supple. No JVD, thyromegaly or lymphadenopathy. CHEST: Bilateral good air entry present. Bibasilar crepitation. Occasional wheezing. CARDIOVASCULAR: S1 and S2 heard. No gallop or thrill. ABDOMEN: Soft and globular. Bowel sounds present. No organomegaly or mass. EXTREMITIES: No cyanosis or clubbing. No acute DVT. TROMPER: Alert, awake, and able to move all 4 limbs. LABORATORY DATA: Lab data done today, hemoglobin 11, hematocrit 36.2, and WBC count 11.12. Platelet count 53,000. Blood gas pH 7.35, pCO2 79, pO2 was 75. This was done on FiO2 of 100% with CPAP. His electrolyte result also reviewed. ProBNP was 608. CONSIDERATION: Patient admitted with COPD exacerbation, chronic hypercapnic and hypoxemic respiratory failure, atelectasis, history of B-cell lymphoma. Gastritis and reflux disease. Labs revealed thrombocytopenia, history of gastritis and reflux disease. Hypothyroidism. Situational depression. Treatment given in the ER reviewed. Discussed with patient and son. We will continue home medicine. Close observation. Check appropriate labs in the morning. Overall plan discussed. cc: Michael Camacho MD
[2020-01-22] MEDS: REMERON PO SCH (23:33)
[2020-01-22] MEDS: HUMALOG SUBQ SCH (23:33)
[2020-01-22] MEDS: FLOMAX PO SCH (23:34)
[2020-01-22] MEDS: DESYREL PO SCH (23:34)
[2020-01-22] MEDS: REQUIP PO SCH (23:34)
[2020-01-23 03:50] LABS: BASO# 0.01 X1000 (0.0-0.2); BASO% 0.1 % (0.0-0.8); EOS# 0.01 X1000 (0.0-0.7); EOS% 0.1 % (0.0-10.0); HEMATOCRIT 31.6 % (42.0-52.0); HEMOGLOBIN 10.1 g/dL (14.0-18.0); IMM GRAN# 0.02 X1000 (0.0-0.04); IMM GRAN% 0.2 % (0.0-0.5); LYMPH# 8.02 X1000 (1.2-3.4); LYMPH% 80.1 % (20.5-51.1); MCH 30.4 PG (27-31); MCV 95.2 FL (81-99); MONO# 0.03 X1000 (0.11-0.59); MONO% 0.3 % (1.7-9.3); MPV 11.5 FL (7.4-10.4); NEUT# 1.92 X1000 (1.4-6.5); NEUT% 19.2 % (42.2-75.2); PLT 46 X1000 (130-400); RBC 3.32 XMIL (4.7-6.1); RDW 13.8 % (11.5-14.5); WBC 10.01 X1000 (4.8-10.8)
[2020-01-23 04:07] LABS: ALB/GLOB RATIO 1.3; ALBUMIN 3.6 g/dL (3.5-5.0); CALCIUM 8.6 mg/dL (8.8-10.2); CREATININE 1.7 mg/dL (0.7-1.2); MAGNESIUM 2.2 mg/dL (1.5-2.7); POTASSIUM 4.5 mmol/L (3.5-5.1); TOTAL BILIRUBIN 0.41 mg/dL (0.20-1.00); TOTAL PROTEIN 6.3 g/dL (6.3-8.3)
[2020-01-23 04:50] LABS: ALLEN TEST YES; BE 12.6 mmoll (-3.0-3.0); BLOOD TYPE ARTERIAL; HCO3-(ACT) 34.8 mmoll (20.0-26.0); METHB 0.6 % (0.0-1.5); O2HB 97.6 % (95.0-99.0); PO2(98.6) 172 mmHg (60-100); SAMPLE BLOOD; SAO2 100.3 % (95.0-100.0); THB 9.2 g/dL (11.5-17.4); pH(98.6) 7.36 (7.35-7.45)
[2020-01-23 04:54] LABS: PCO2(98.6) 71 mmHg (35-45)
[2020-01-23 04:55] LABS: MODALITY VENTIMASK
[2020-01-23] MEDS: SOLU-MEDROL IV SCH ×4 (06:34→22:21)
[2020-01-23] MEDS: SYNTHROID PO SCH ×2 (06:34→08:52)
[2020-01-23] MEDS: ROCEPHIN 1 GM in NS 50 ML IV SCH (06:36)
[2020-01-23] MEDS ORDERED: LASIX IV ONE (06:39)
[2020-01-23] MEDS: HUMALOG SUBQ SCH ×3 (06:41→22:20)
[2020-01-23 07:07] LABS: HEMOGLOBIN A1C 5.4 % (4.8-6.0)
--- NOTE | 2020-01-23 07:26 | PROGRESS NOTE ---
DATE: 01/23/2020 SUBJECTIVE: The patient is doing fair. The patient does have cough and some chest congestion complaining of shortness of breath. No nausea or vomiting. Denied any diarrhea. No typical chest pain. Patient admitted with increasing shortness of breath and cough, COPD exacerbation, and known case of diabetes mellitus. OBJECTIVE: Vital Signs: As noted. Neck: Supple. No JVD. Lungs: Bibasilar crepitations. Occasional wheezing. CVS: S1 and S2 heard. Abdomen: Soft. Globular. Bowel sounds present. CULTURE MEDIA LABORATORY ASSISTANT: Alert and awake. Able to move all 4 limbs. Minimal swelling in the legs. LABORATORY DATA: Lab data done today, BUN was 40, creatinine 1.7. Blood sugar result reviewed. Lactate was 1.2. Blood gas result also reviewed. CONSIDERATION: 1. COPD exacerbation. 2. Bronchitis. 3. Atelectasis. 4. B-cell lymphoma. 5. Hypothyroidism. 6. CBC results reviewed. 7. We will continue current treatment. 8. Overall plan discussed with the patient, and he is in agreement. cc: Michael Camacho MD
[2020-01-23] MEDS: VITAMIN D PO SCH (08:51)
[2020-01-23] MEDS: CYMBALTA PO SCH (08:51)
[2020-01-23] MEDS: LOPID PO SCH ×2 (08:52→22:20)
[2020-01-23] MEDS: VITAMIN B-12 PO SCH (08:52)
[2020-01-23] MEDS: ASPIRIN PO SCH (08:52)
[2020-01-23] MEDS: PROTONIX IV SCH (13:16)
[2020-01-23] MEDS: SODIUM CHLORIDE 0.9% INJ SCH (13:16)
[2020-01-23] MEDS: PATIENT'S OWN MED - CHEMO PO SCH (18:31)
[2020-01-23] MEDS: FLOMAX PO SCH (22:20)
[2020-01-23] MEDS: DESYREL PO SCH (22:20)
[2020-01-23] MEDS: REMERON PO SCH (22:20)
[2020-01-23] MEDS: ZOCOR PO SCH (22:21)
[2020-01-23] MEDS: REQUIP PO SCH (22:28)
[2020-01-24] MEDS: SOLU-MEDROL IV SCH ×4 (04:55→23:12)
[2020-01-24] MEDS: ROCEPHIN 1 GM in NS 50 ML IV SCH ×2 (04:56→05:03)
[2020-01-24] MEDS: HUMALOG SUBQ SCH ×5 (06:51→20:53)
--- NOTE | 2020-01-24 07:01 | PROGRESS NOTE ---
DATE: 01/24/2020 SUBJECTIVE: Mr. Phillips is feeling better. He denied any fever or chills, chest congestion, cough improving. No nausea or vomiting. Shortness of breath is improving. The patient admitted with COPD exacerbation, chronic hypoxemic and hypercarbic respiratory failure. OBJECTIVE: Vital signs: Noted. Neck: Neck is supple. No JVD. Lungs: Bilateral good air entry present. Occasional wheezing. CVS: S1 and S2 heard. Abdomen: Soft, globular. Bowel sounds present. CHIP SILO TENDER: Alert, awake, able to move all 4 limbs. CONSIDERATION: 1. Chronic obstructive pulmonary disease exacerbation. 2. The patient does have hypoxemic and hypercarbic respiratory failure. 3. B-cell lymphoma. 4. Metabolic syndrome. 5. Hypertension. 6. Benign prostatic hyperplasia. The patient is still requiring much higher concentration of oxygen. We will continue current treatment, bronchodilator care, pulmonary toilet. PLAN: Plan is to discharge patient home, hopefully Monday. cc: Michael Camacho MD
[2020-01-24] MEDS ORDERED: LASIX PO SCH (09:00)
[2020-01-24] MEDS ORDERED: DUONEB (A & A) INH ONE (09:34)
[2020-01-24] MEDS: MUCOMYST 20% INH SCH ×2 (09:41→20:21)
[2020-01-24] MEDS: VITAMIN B-12 PO SCH (10:55)
[2020-01-24] MEDS: VITAMIN D PO SCH (10:55)
[2020-01-24] MEDS: LASIX PO SCH (10:55)
[2020-01-24] MEDS: LOPID PO SCH ×2 (10:55→20:49)
[2020-01-24] MEDS: ASPIRIN PO SCH (10:55)
[2020-01-24] MEDS: CYMBALTA PO SCH (10:55)
[2020-01-24] MEDS: SYNTHROID PO SCH (10:55)
[2020-01-24] MEDS: PATIENT'S OWN MED - CHEMO PO SCH (10:56)
[2020-01-24] MEDS: SODIUM CHLORIDE 0.9% INJ SCH (12:19)
[2020-01-24] MEDS: PROTONIX IV SCH (12:19)
[2020-01-24] MEDS: DUONEB (A & A) INH SCH ×3 (15:32→23:40)
[2020-01-24] MEDS: REMERON PO SCH (20:49)
[2020-01-24] MEDS: ZOCOR PO SCH (20:49)
[2020-01-24] MEDS: FLOMAX PO SCH (20:49)
[2020-01-24] MEDS: DESYREL PO SCH (20:50)
[2020-01-24] MEDS: REQUIP PO SCH (20:55)
[2020-01-25] MEDS: DUONEB (A & A) INH SCH ×6 (03:51→23:25)
[2020-01-25] MEDS: SOLU-MEDROL IV SCH (06:09)
[2020-01-25] MEDS: ROCEPHIN 1 GM in NS 50 ML IV SCH (06:09)
[2020-01-25] MEDS: HUMALOG SUBQ SCH ×4 (06:44→22:50)
[2020-01-25 07:09] LABS: HEMATOCRIT 31.4 % (42.0-52.0); HEMOGLOBIN 9.7 g/dL (14.0-18.0); LYMPH# 4.34 X1000 (1.2-3.4); LYMPH% 72.7 % (20.5-51.1); MCH 29.1 PG (27-31); MCHC 30.9 g/dL (33-37); MCV 94.3 FL (81-99); MONO# 0.05 X1000 (0.11-0.59); MONO% 0.8 % (1.7-9.3); MPV 11.5 FL (7.4-10.4); NEUT# 1.58 X1000 (1.4-6.5); NEUT% 26.5 % (42.2-75.2); PLT 61 X1000 (130-400); RBC 3.33 XMIL (4.7-6.1); RDW 13.7 % (11.5-14.5); WBC 5.97 X1000 (4.8-10.8)
[2020-01-25 07:23] LABS: ALB/GLOB RATIO 1.5; ALBUMIN 3.6 g/dL (3.5-5.0); CALCIUM 8.5 mg/dL (8.8-10.2); CREATININE 1.6 mg/dL (0.7-1.2); MAGNESIUM 2.4 mg/dL (1.5-2.7); POTASSIUM 4.3 mmol/L (3.5-5.1); TOTAL BILIRUBIN 0.32 mg/dL (0.20-1.00)
[2020-01-25 07:32] LABS: LYMPHS 90 % (21-51); SEGS 10 % (42-75)
[2020-01-25] MEDS: MUCOMYST 20% INH SCH ×2 (08:25→19:55)
[2020-01-25] MEDS: VITAMIN D PO SCH (09:45)
[2020-01-25] MEDS: LOPID PO SCH ×2 (09:45→22:50)
[2020-01-25] MEDS: ASPIRIN PO SCH (09:45)
[2020-01-25] MEDS: VITAMIN B-12 PO SCH (09:45)
[2020-01-25] MEDS: LASIX PO SCH (09:46)
[2020-01-25] MEDS: PATIENT'S OWN MED - CHEMO PO SCH (09:46)
[2020-01-25] MEDS: CYMBALTA PO SCH (09:46)
[2020-01-25] MEDS: SYNTHROID PO SCH (09:46)
[2020-01-25] MEDS: PROTONIX IV SCH (11:38)
[2020-01-25] MEDS: SODIUM CHLORIDE 0.9% INJ SCH (11:38)
--- NOTE | 2020-01-25 12:49 | PROGRESS NOTE ---
DATE: 01/25/2020 SUBJECTIVE: Level 3 documentation. An 79-year-old white gentleman was admitted to the hospital by Dr. Camacho, acute COPD exacerbation. Interval history was reviewed. The patient is getting breathing treatments. He denies having any chest pain. Some coughing and wheezing. No swelling of feet. Blood sugars running a little bit high. PAST MEDICAL HISTORY: Reviewed. PAST SURGICAL HISTORY: Reviewed. MEDICINES: Reviewed. ALLERGIES: Not known. OBJECTIVE: Vital signs: On examination, temperature is 98.4 degrees, pulse 70. Vitals are stable, 93% on room air. HEENT Exam: Within normal limits. Neck: Supple. Scar noted on the left side of the neck. Chest: Scattered wheezing. Heart: Sounds are regular with 3/6 systolic murmur all over the precordium. Abdomen: Belly is soft, and incisional hernia, umbilical hernia, midline abdominal scar noted. Extremities: No peripheral edema. No obvious deficits. INVESTIGATIONS: CBC: White cell count 5.9, hematocrit 31.4, platelets 61,000. Sodium 140, potassium 4.3, BUN 58, creatinine 1.6, glucose 286. LFTs were normal. Blood cultures are negative. Chest x-ray: COPD changes with scarring in the left lingula and the lower lobe. ASSESSMENT AND PLAN: 1. Acute chronic obstructive pulmonary disease exacerbation. Currently IV ceftriaxone 1 g q.24 hours, DuoNeb, IV steroids will decrease to once daily. 2. Hypothyroidism on Synthroid. 3. Benign prostatic hypertrophy on Flomax. 4. Type 2 diabetes on insulin with sliding scale coverage. 5. Hyperlipidemia on Zocor 20 mg daily. 6. 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 7. Significant systolic murmur due to aortic stenosis, currently asymptomatic. 8. Coronary artery disease status post bypass surgery on secondary prevention, which includes aspirin 81 mg, daily, on Zocor and Lopid. 9. Chronic insomnia on Desyrel and Remeron. Continue present treatment. We will follow up. LEVEL OF DOCUMENTATION: 35 minutes. cc: MD Michael Murillo MD
[2020-01-25] MEDS: REQUIP PO SCH (22:49)
[2020-01-25] MEDS: ZOCOR PO SCH (22:49)
[2020-01-25] MEDS: FLOMAX PO SCH (22:49)
[2020-01-25] MEDS: REMERON PO SCH (22:50)
[2020-01-25] MEDS: DESYREL PO SCH (22:50)
[2020-01-26] MEDS: DUONEB (A & A) INH SCH ×6 (03:09→22:26)
[2020-01-26] MEDS: ROCEPHIN 1 GM in NS 50 ML IV SCH (06:16)
[2020-01-26] MEDS: HUMALOG SUBQ SCH ×5 (06:17→20:32)
[2020-01-26] MEDS: MUCOMYST 20% INH SCH ×2 (08:22→22:27)
[2020-01-26] MEDS ORDERED: SOLU-MEDROL IV SCH (09:00)
[2020-01-26] MEDS: VITAMIN D PO SCH (11:41)
[2020-01-26] MEDS: LASIX PO SCH (11:42)
[2020-01-26] MEDS: SYNTHROID PO SCH (11:42)
[2020-01-26] MEDS: VITAMIN B-12 PO SCH (11:42)
[2020-01-26] MEDS: CYMBALTA PO SCH (11:42)
[2020-01-26] MEDS: LOPID PO SCH ×2 (11:42→20:30)
[2020-01-26] MEDS: ASPIRIN PO SCH (11:42)
[2020-01-26] MEDS: PROTONIX IV SCH (11:43)
[2020-01-26] MEDS: PATIENT'S OWN MED - CHEMO PO SCH (11:43)
[2020-01-26] MEDS: SODIUM CHLORIDE 0.9% INJ SCH (11:43)
--- NOTE | 2020-01-26 17:06 | PROGRESS NOTE ---
DATE: 01/26/2020 SUBJECTIVE: The patient is doing very well. He is sitting up eating breakfast. He is not offering any complaints. Blood sugars are running a little bit high. OBJECTIVE: Vital signs: Temperature is 98 degrees, pulse 60, blood pressure 112/68, 4 L 95%. HEENT: Within normal limits. Respiratory: Scattered wheezing. Cardiovascular: A 3/6 systolic murmur all over the precordium noted. Abdomen: Incisional hernia, umbilical hernia noted. Extremities: No edema. LABORATORY DATA: Blood sugar 230. Blood cultures were negative. ASSESSMENT AND PLAN: 1. Acute chronic obstructive pulmonary disease exacerbation. Currently on IV ceftriaxone, DuoNeb. I cut down the steroids. 2. B-cell large-cell lymphoma. Under the care of Dr. Munguia. 3. Aortic stenosis, asymptomatic. Last echo was done by Dr. Lopez. Continue secondary prevention for underlying CAD. Will discharge in the morning by Dr. Camacho and will follow up. No change. Needs to monitor blood sugars as an outpatient, as well as for aortic stenosis murmur. LEVEL OF DOCUMENTATION: Thirty-five minutes. cc: MD Michael Murillo MD
[2020-01-26] MEDS: ZOCOR PO SCH (20:30)
[2020-01-26] MEDS: CARDIZEM PO SCH (20:30)
[2020-01-26] MEDS: REMERON PO SCH (20:31)
[2020-01-26] MEDS: DESYREL PO SCH (20:31)
[2020-01-26] MEDS: REQUIP PO SCH (20:31)
[2020-01-26] MEDS: FLOMAX PO SCH (20:31)
[2020-01-27] MEDS: CARDIZEM PO SCH (03:02)
[2020-01-27] MEDS: DUONEB (A & A) INH SCH ×2 (03:19→10:56)
[2020-01-27] MEDS: ROCEPHIN 1 GM in NS 50 ML IV SCH (06:58)
[2020-01-27 07:06] LABS: HEMATOCRIT 33.2 % (42.0-52.0); HEMOGLOBIN 10.4 g/dL (14.0-18.0); LYMPH# 6.32 X1000 (1.2-3.4); LYMPH% 79.7 % (20.5-51.1); MCH 29.5 PG (27-31); MCHC 31.3 g/dL (33-37); MCV 94.1 FL (81-99); MONO# 0.02 X1000 (0.11-0.59); MONO% 0.3 % (1.7-9.3); MPV 10.9 FL (7.4-10.4); NEUT# 1.59 X1000 (1.4-6.5); PLT 91 X1000 (130-400); RBC 3.53 XMIL (4.7-6.1); RDW 14.4 % (11.5-14.5); WBC 7.93 X1000 (4.8-10.8)
--- NOTE | 2020-01-27 07:08 | EKG Report ---
Test Performed on : 01/27/2020 06:53:59 AM Test Reason : afib Blood Pressure : / mmHG Vent. Rate : 075 BPM Atrial Rate : 075 BPM P-R Int : 138 ms QRS Dur : 098 ms QT Int : 390 ms P-R-T Axes : 016 014 121 degrees QTc Int : 435 ms Sinus rhythm. with premature supraventricular complexes. Voltage criteria for left ventricular hypertrophy ST & T wave abnormality, consider anterolateral ischemia Abnormal ECG When compared with ECG of 22-JAN-2020 06:43, (Unconfirmed) premature supraventricular complexes. are now present T wave inversion more evident in Lateral leads Confirmed by Anshu Gusman MD ([id number]) on 01/29/2020 3:21:14 PM
[2020-01-27 07:23] LABS: ALB/GLOB RATIO 1.6; ALBUMIN 3.6 g/dL (3.5-5.0); CALCIUM 8.8 mg/dL (8.8-10.2); CREATININE 1.8 mg/dL (0.7-1.2); MAGNESIUM 2.4 mg/dL (1.5-2.7); POTASSIUM 3.9 mmol/L (3.5-5.1); TOTAL BILIRUBIN 0.45 mg/dL (0.20-1.00); TOTAL PROTEIN 5.9 g/dL (6.3-8.3)
[2020-01-27 07:27] LABS: T4 5.43 ug/dL (4.60-12.00); TSH 2.39 uIUmL (0.27-4.20)
[2020-01-27] MEDS: HUMALOG SUBQ SCH ×2 (07:43→11:38)
[2020-01-27] MEDS: CYMBALTA PO SCH (08:21)
[2020-01-27] MEDS: VITAMIN B-12 PO SCH (08:21)
[2020-01-27] MEDS: ASPIRIN PO SCH (08:21)
[2020-01-27] MEDS: LOPID PO SCH (08:21)
[2020-01-27] MEDS: SYNTHROID PO SCH (08:21)
[2020-01-27] MEDS: VITAMIN D PO SCH (08:21)
[2020-01-27] MEDS: PATIENT'S OWN MED - CHEMO PO SCH (08:26)
[2020-01-27] MEDS ORDERED: PREDNISONE PO SCH (09:00)
[2020-01-27] MEDS ORDERED: CARDIZEM CD PO SCH (09:00)
[2020-01-27] MEDS ORDERED: LASIX PO SCH (09:00)
[2020-01-27] MEDS: MUCOMYST 20% INH SCH (10:56)
[2020-01-27] MEDS: PROTONIX IV SCH (11:37)
[2020-01-27] MEDS: SODIUM CHLORIDE 0.9% INJ SCH (11:38)
[2020-01-27 12:03] VITALS: BP 165/75
--- NOTE | 2020-01-27 19:31 | DISCHARGE SUMMARY ---
ADMISSION DATE: 01/22/2020 DISCHARGE DATE: 01/27/2020 FINAL DISCHARGE DIAGNOSES: 1. Chronic obstructive pulmonary disease exacerbation. 2. Chronic hypercapnic and hypoxemic respiratory failure. 3. Atelectasis. 4. History of B-cell lymphoma. 5. Gastritis and reflux disease. 6. Thrombocytopenia. 7. Hypothyroidism . 8. Paroxysmal atrial fibrillation. 9. Situational depression. 10. Osteoarthritis. 11. Benign prostatic hypertrophy. Mr. Phillips 79-year-old white gentleman admitted with chest congestion, cough, shortness of breath, decreased exercise tolerance. According to the daughter the patient was going to oncologist who changed his chemotherapy and patient had problem with the new chemotherapy. He was getting short of breath, increasing cough, decreased exercise tolerance. The rest of the information from admission history and physical. When patient presented initial oxygen saturation was 66%. Patient was started on oxygen. He was given nebulizer treatment. His clinical condition stabilized. The patient was admitted for further care. The patient was admitted to telemetry bed. He was treated with IV steroid, IV antibiotics, pulmonary toilet, bronchodilator care, p.r.n. IV Lasix. His clinical condition stabilized and improved. Overall patient received maximum benefit of hospitalization. His shortness of breath improved. Leg swelling improved. Over the weekend patient had episode of paroxysmal atrial fibrillation which was treated appropriately. Patient's clinical condition improved and stabilized. He was eager to go home and I discharged him home today which was January 26. Vital signs: Noted. Neck: Supple. No JVD. Lungs: Bibasilar crepitation, occasional wheezing. CVS: S1 and S2 heard. Abdomen: Soft, globular, bowel sounds present. Extremities: No cyanosis, clubbing. No acute DVT. Peripheral pulsation intact. HARNESS PREPARER: Alert, awake, able to move all 4 limbs. LAB DATA: Revealed WBC count 7.93, hemoglobin 10.4, hematocrit 33.2, platelet count was 91,000. Electrolytes. BUN 56, creatinine 1.8, potassium 3.9. Blood sugar result reviewed. TSH 2.39, T4 5.43. Blood gas pH 7.36, pCO2 71, PO2 172. This was done on 50% via Ventimask. His D-dimer was 0.86. CBC WBC count 7.93, hemoglobin 10.4, hematocrit 33.2, platelet count was 91,000. Patient does have lymphocytosis. Patient's chest x-ray revealed COPD, there sternotomy wires, stable chest. The patient was discharged home on tapering dose of prednisone, oral antibiotics, give him Cardizem CD, monitor heart rate and blood pressure at home. Follow up with me as scheduled. Take medicine regularly. Patient was given parameters for Cardizem, in case of more distress call us back or go to emergency room. cc: Michael Camacho MD
[2020-01-27] MEDS ORDERED: CRESTOR PO SCH (21:00)
== END 2020-01-27 13:07 | disposition home health service (06) | DRG 191 ==
LOC: ED 04:47 → EDIPHOLD 10:16 → 4N 11:52
PROVIDERS: ADMIT Internal Medicine; ATTEND Internal Medicine